=== PATIENT | female | born 1940 | race Caucasian/White ===

== ENCOUNTER → 2018-01-04 15:30 | Outpatient (CLI) | payer MEDICARE, OTHER, SELFPAY ==
--- NOTE | 2018-01-04 15:32 | CT_ITS ---
STUDY: CTA CHEST REASON FOR EXAM: Female, 77 years old. Evaluation of pulmonary embolus. 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 Post-processing of the angiographic images was performed, with multiplanar reformation and 3D reconstruction. Individualized dose optimization techniques were used for this CT. COMPARISON: Prior chest CT exam of September 10, 2017 FINDINGS: Normal enhancement of the main pulmonary artery and right and left pulmonary arteries. Normal enhancement of the bilateral peripheral pulmonary arteries. There is no demonstrated pulmonary embolism. There is atherosclerotic calcification of the aortic arch with tortuosity. There is no demonstrated aortic dissection. Mild cardiomegaly. Calcified mediastinal lymph nodes. Calcified left hilar lymph nodes. Minimal linear type change in the anterior right upper lobe multifocal thin linear areas of atelectasis or scarring in the right lower lobe. Stable linear scarring at the left lung base. Negative for a new major areas of consolidation. Calcified granulomata of the left lower lobe. Stable 6 mm pleural-based nodule of the lingula, image 74 series 2. Negative for pleural effusion. Normal chest wall structures. There are degenerative changes of thoracic spine with demineralized osseous structures and increased kyphosis. Calcified granulomata of the spleen. Stable cyst of the left kidney. CT/CTA Chest W/WO Contrast IMPRESSION: Negative for pulmonary embolus. Resolution of prior embolus. Atherosclerotic changes of the thoracic aorta without aneurysm. Mild cardiomegaly unchanged. New focal linear opacities of the anterior right upper lobe and right lower lobe. Other bilateral linear opacities are stable and chronic in nature. Stigmata of old granulomatous disease with calcified mediastinal and left hilar lymph nodes. Calcified granulomata of the left lower lobe and spleen.. Stable 6 mm pleural-based noncalcified nodule of the lingula. Electronically Signed: Scarlet Eduardo MD at 16:36 EDT , Service support ,
== END ==
PROVIDERS: Family Provider Internal Medicine; PCP Internal Medicine; Visit Provider Internal Medicine
DX: I26.99 Other pulmonary embolism without acute cor pulmonale (principal)
CPT/HCPCS: 71275; Q9967

== ENCOUNTER → 2018-01-05 09:38 | Outpatient (CLI) | payer MEDICARE, OTHER, SELFPAY ==
--- NOTE | 2018-01-05 09:41 | VDLE_ITS ---
Reason For Study: PE RIGHT LEFT GSV is normal. GSV is normal. CFV is compressible, spontaneous, phasic, CFV is compressible, spontaneous, phasic, competent and demonstrates normal competent, and demonstrates normal augmentation. augmentation. FV is compressible, spontaneous, phasic, FV is compressible, spontaneous, phasic, competent and demonstrates normal competent and demonstrates normal augmentation. augmentation. POP V is compressible, spontaneous, phasic, POP V is compressible, spontaneous, phasic, competent and demonstrates normal competent and demonstrates normal augmentation. augmentation. T/P Trunk is compressible. T/P Trunk is compressible. PTV is compressible. PTV is compressible. RT PerV is compressible. LT PerV is compressible. Procedure Exam performed in department. A preliminary report was called and/or faxed to Dr. Baker. Interpretation Summary Deep veins of the lower extremities are bilaterally patent and compressible segmentally. There is no evidence of deep vein thrombosis on either side. Valvular competence appears intact within the proximal deep venous systems bilaterally. The greater saphenous veins appear bilaterally patent and compressible segmentally. Ordering Physician: Trell Baker Referring Physician: Nhi Kirby M.D. Performed By: Gisella Crockett RVT
--- NOTE | 2018-01-05 09:41 | ECHOD_ITS ---
Reason For Study: Pulmonary embolism Procedure This was a 2D Doppler, Color Flow transthoracic echocardiogram. Exam performed in department. Left Ventricle Normal LV size. Left ventricular systolic function is normal. The estimated ejection fraction is 53 %. Transmitral diastolic flow velocities suggest mild (stage 1) diastolic dysfunction (reversed pattern). No regional wall motion abnormalities noted. Right Ventricle Normal RV size. Normal systolic function. Atria Normal left atrium. Normal right atrium. Hypermobile atrial septum. Mitral Valve Normal mitral valve. Mild (1+) eccentric mitral valve insufficiency. Tricuspid Valve Normal tricuspid valve. Mild (1+) tricuspid valve insufficiency. Pulmonary artery systolic pressure is 32 mmHg. Aortic Valve Normal aortic valve. Trisinus/trileaflet aortic valve. Pulmonic Valve Normal pulmonic valve. Great Vessels Normal aortic root. The pulmonary artery is normal size. Normal inferior vena cava. Pericardium/Pleural No pericardial effusion. MMode/2D Measurements & Calculations LVIDd: 4.3 cm IVSd: 0.91 cm Ao root diam: 2.6 cm LVIDs: 2.9 cm LVPWd: 0.87 cm LA dimension: 3.5 cm RVDd: 3.0 cm FS: 33.0 % LAV(MOD-bp): 46.4 ml LA A4 area: 17.2 cm2 RA A4 area: 15.2 cm2 LAV(MOD-bp) Indexed: 26.5 ml/m2 LAV(MOD-sp2): 43.9 ml LAV(MOD-sp4): 50.8 ml Doppler Measurements & Calculations MV E max juice: 57.4 cm/sec Lat Peak E' Juice: 5.9 cm/sec Med Peak E' Juice: 4.6 cm/sec MV A max juice: 98.6 cm/sec E/E' lat: 9.7 E/E' med: 12.5 MV E/A: 0.58 Ao V2 max: 148.7 cm/sec LV V1 max: 103.7 cm/sec PA V2 max: 130.1 cm/sec Ao max P.8 mmHg LV V1 max P.3 mmHg TR max juice: 256.4 cm/sec TR max P.4 mmHg Interpretation Summary Hypermobile atrial septum. Normal LV size. Left ventricular systolic function is normal. The estimated ejection fraction is 53 %. Transmitral diastolic flow velocities suggest mild (stage 1) diastolic dysfunction (reversed pattern). Mild (1+) tricuspid valve insufficiency. Ordering Physician: Trell Baker Referring Physician: Nhi Kirby M.D. Performed By: Irina Kennedy RDCS
== END ==
PROVIDERS: Family Provider Internal Medicine; PCP Internal Medicine; Visit Provider Internal Medicine Cardiovascular Disease
DX: I26.99 Other pulmonary embolism without acute cor pulmonale (principal); I48.91 Unspecified atrial fibrillation; I47.2 Ventricular tachycardia
CPT/HCPCS: 93306; 93970

== ENCOUNTER 2022-01-19 06:06 | Emergency (ER) | payer MEDICARE, OTHER, SELFPAY ==
[2022-01-19 06:06] VITALS: BP 156/98; PULSE 72; RESP 15; TEMP 37.2; O2SAT 95; BMI 29.7
--- NOTE | 2022-01-19 06:10 | CT_ITS ---
STUDY: CT ABDOMEN AND PELVIS WITHOUT CONTRAST REASON FOR EXAM: Female, 81 years old. Kidney Stone RADIATION DOSAGE (If Supplied By Facility): CTDIvol = ( 11.68 ) mGy, DLP = ( 516.35 ) mGycm TECHNIQUE: Transaxial images were obtained from the dome of the diaphragm to the symphysis pubis without oral contrast, and without intravenous contrast. Sagittal and coronal images were reconstructed. Individualized dose optimization techniques were used for this CT. COMPARISON: CTA chest of 01/04/2018. FINDINGS: Bibasilar dependent atelectasis. Findings of remote granulomatous infection. Trace of pericardial fluid. Mild coronary artery calcification. Small hiatal hernia, measuring 3.3 cm in diameter. Liver is unremarkable on this nonenhanced scan. Normal gallbladder and extrahepatic biliary system. Unremarkable spleen. Markedly atrophic pancreas. No findings of acute pancreatitis. Normal bilateral adrenal glands. Right kidney is mildly enlarged and edematous with asymmetric perirenal stranding and a trace of perirenal fluid.. Very mild right hydronephrosis and hydroureter are present, secondary to a 4 mm ovoid stone which lies within the distal ureter at the UVJ. No other renal or ureteral stones are identified. 5 cm simple cyst noted upper pole of the left kidney. 3 cm simple cyst noted posteriorly at the midpole of the right kidney. These simple cysts require no follow-up. No left-sided hydronephrosis. Urinary bladder is unremarkable. No gastric mural thickening, periduodenal inflammatory changes or distended small bowel loops. Numerous colonic diverticula are present, without evidence for acute diverticulitis. No findings of small bowel obstruction or colitis. Appendix is not visualized. No pericecal inflammatory changes. Uterus is not well seen. 18 mm rounded unilocular cystic structure in the left adnexal region, consistent with a small left ovarian cyst. No right adnexal abnormality. Multilevel thoracolumbar degenerative disc disease. No acute fracture. CT/Abdomen/Pelvis without Cont IMPRESSION: Very mild right hydronephrosis due to a 4 mm stone within the distal ureter at the UVJ. Electronically Signed: Arnold Alfonso MD at 7:51 EDT ,
[2022-01-19] MEDS: Ondansetron 4 MG/2 ML Vial IV (06:21)
[2022-01-19] MEDS: 0.9% Normal Saline 1,000 ML 250 ML IV (06:24)
[2022-01-19] MEDS: Morphine 4 MG/ML Syringe IV ×2 (06:24→06:49)
--- NOTE | 2022-01-19 06:26 | ED.VIS.GI ---
HPI <Dr. Phu Pandey MD - Last Filed: 01/19/22 06:52> HPI - GI History of Present Illness Chief Complaint: Abd Pain Detail of Chief Complaint: Abrupt onset of mid right abdominal pain with frequency Informant: patient and spouse/S.O. Abdominal Pain/Flank Pain Onset: Yesterday and Hours Context: Sudden Onset Timing: Continuous and Waxes and wanes Quality: Aching Location: RLQ and Right Flank Current Severity: Moderate Maximum Severity: Severe Worsened by: Nothing Relieved by: Nothing Nausea/Vomiting/Emesis GI Symptom: Positive for Nausea; Negative for Vomiting Diarrhea/Melena/Hematochezia GI Symptom: Negative for Diarrhea, Melena and Hematochezia Associated Symptoms Associated Symptoms: Positive for Frequency and Urgency; Negative for Dysuria and Hematuria Narrative Narrative: Patient is a 81-year-old woman who presents with acute onset of right-sided abdominal/flank pain. She cannot find a position of comfort. She does report frequency and urgency. She denies dysuria or hematuria. She does report nausea without vomiting or diarrhea. She denies fever, chills night sweats. She has no prior history of renal ureterolithiasis. She is status post appendectomy. She denies any other complaints. Prior similar symptoms: No Recent Illness/Hospitalization: No PFSH <Dr. Phu Pandey MD - Last Filed: 01/19/22 06:52> PFS Medical History (Updated 01/19/22 @ 08:[address] Fred Lui MD) Atrial fibrillation with RVR History of DVT (deep vein thrombosis) Nonsustained ventricular tachycardia Pulmonary embolism, bilateral Home Medications aspirin 81 mg chewable tablet 81 mg PO DAILY@0800 #90 tab.chew 10/01/18 [Rx Last Taken Unknown] hydrocodone-acetaminophen 1 tab PO Q4H PRN 3 Days #14 tab 01/19/22 [Rx Last Taken Unknown] potassium chloride 20 meq PO DAILY #10 tab 01/19/22 [Rx Last Taken Unknown] Allergy/AdvReac Type Severity Reaction Status Date / Time acetaminophen [From Tylenol] Allergy Intermediate BP Verified 01/19/22 06:11 ELEVATION apixaban [From Eliquis] AdvReac visual Verified 01/19/22 06:11 disturbance rivaroxaban [From Xarelto] AdvReac burning Verified 01/19/22 06:11 sensation, hair loss Family History Mother Hypertension Surgical History History of appendectomy History of bilateral knee replacement History of hysterectomy (~1979) Social History adopted: No household members: spouse housing: house number of children: 0 pets and animals: Yes (1) pets and animals: dog(s) history of recent travel: No Smoking Status: Never smoker alcohol intake: never substance use type: does not use caffeine: Yes Type: coffee Number of servings: 2 what type of physical activity do you participate in: walking and other frequency: daily duration: 15-30 minutes/day seatbelt use: always do you feel safe at home: Yes ROS <Dr. Phu Pandey MD - Last Filed: 01/19/22 06:52> ROS ED Constitutional Constitutional ED: Reports chills; Denies fever(s), subjective, sweats or weight loss ENT ENT ED: Denies ear pain, rhinorrhea or sore throat Cardiovascular Cardiovascular: Denies chest pain or palpitations Respiratory/Chest Respiratory/Chest: Denies cough, dyspnea or dyspnea on exertion Gastrointestinal Gastrointestinal: Reports abdominal pain and nausea; Denies constipation, diarrhea, melena or vomiting Genitourinary Genitourinary ED: Reports urinary frequency; Denies dysuria or hematuria Musculoskeletal Musculoskeletal: Reports back pain; Denies arthralgias, myalgias or neck pain Integumentary Denies Abrasions or rash Neurologic Neurologic: Denies paresthesias or weakness Hematologic/Lymphatic Hematologic/Lymphatic: Denies easy bleeding or easy bruising EXAM <Dr. Phu Pandey MD - Last Filed: 01/19/22 06:52> Physical Exam Const Vital Signs: 01/19/22 06:06 Temperature 98.9 F Temperature Source Temporal Pulse Rate 72 Respiratory Rate 15 Blood Pressure 156/98 H Blood Pressure Mean 117 Pulse Ox 95 Oxygen Delivery Method Room Air Positive well nourished and well developed; Negative for obese, cachectic, contractures or unkempt General Appearance ED: well developed and other Patient appears chilled. She also appears uncomfortable. ; Negative for unkempt, cachectic, contractures, NAD or pallor Nutritional Appearance: Negative for cachectic or obese HEENT Reports moist mucous membranes normocephalic and atraumatic Eyes PERRL and EOMs intact bilaterally General Eye ED: Negative for pale conjunctiva or scleral icterus Neck no lymphadenopathy, supple and no JVD Resp normal respiratory effort and clear to auscultation bilaterally Cardio regular rate, regular rhythm, S1 normal heart sound, S2 normal heart sound and no murmurs GI non-distended and no masses; Negative for non-tender Inspection: Negative for abdominal distention Auscultation: normoactive bowel sounds and hypoactive bowel sounds Palpation: soft and tender RLQ (Over the right kidney); Negative for guarding, rigid, hepatomegaly, splenomegaly, mass, pulsatile mass or rebound tenderness present Back/Spine no CVA tenderness General Back: Negative for CVA tenderness Cervical Spine: Negative for cervical spine tenderness Thoracic Spine / Upper Back: Negative for thoracic spinal tenderness Lumbar Spine / Lower Back: Negative for lumbar spinal tenderness Extremity Negative for full ROM General Extremety ED: Negative for edema or tenderness General Extremity: Negative for edema Neuro CN's II-XII intact bilaterally and moves all extremities Sensorium / Orientation: alert, oriented to person, oriented to place and oriented to time Psych mental status grossly normal Appearance: Negative for unkempt Skin no wounds Skin Narrative: Patient has dry skin. General Skin Exam: Negative for jaundice or pallor Lesions: no lesions <Dr. Fred Lui MD - Last Filed: 01/19/22 08:15> Physical Exam Const Vital Signs: 01/19/22 06:06 Temperature 98.9 F Temperature Source Temporal Pulse Rate 72 Respiratory Rate 15 Blood Pressure 156/98 H Blood Pressure Mean 117 Pulse Ox 95 Oxygen Delivery Method Room Air [facility] <Dr. Phu Pandey MD - Last Filed: 01/19/22 06:52> [facility] Narrative Medical decision making narrative: Abrupt onset of right sided abdominal/flank pain with urinary symptoms suspect urinary tract infection versus obstructing ureterolithiasis. Patient was medicated with Zofran and morphine for the nausea and pain respectively. CBC to assess white count and H&H. BMP to assess renal function. UA to rule out infection. CT of the abdomen and pelvis without contrast to assess for obstructing stone. I was informed at approximately 0648 that patient was still in severe pain writhing in bed. An additional 4 mg of morphine was ordered. Lab Data Labs: Laboratory Results - last 24 hr 01/19/22 01/19/22 01/19/22 07:05 07:05 07:35 WBC 8.2 RBC 4.65 Hgb 14.0 Hct 42.6 MCV 91.6 MCH 30.1 MCHC 32.9 RDW Std Deviation 45.6 H RDW Coeff of Carloz 13.5 Plt Count 196 MPV 9.9 Immature Gran % (Auto) 0.400 Neut % (Auto) 88.8 H Lymph % (Auto) 7.2 L [place] % (Auto) 3.2 Eos % (Auto) 0.0 Baso % (Auto) 0.4 Absolute Neuts (auto) 7.3 Absolute Lymphs (auto) 0.59 L Nucleated RBC % 0 Differential Comment COMMENT Sodium 143 Potassium 2.9 L Chloride 107 Carbon Dioxide 24.0 Anion Gap 12 BUN 21 H Creatinine 0.85 Estim Creat Clear Calc 45.92 Est GFR (MDRD) Af Amer 82 Est GFR (MDRD) Non-Af 68 BUN/Creatinine Ratio 24.8 H Glucose 167 H Calcium 9.3 Urine Color Straw Urine Clarity Clear Urine pH 7.0 Ur Specific [place] 1.010 Urine Protein Negative Urine Glucose (UA) 100 H Urine Ketones 15 H Urine Occult Blood 150 H Urine Nitrite Negative Urine Bilirubin Negative Urine Urobilinogen Normal Ur Leukocyte Esterase Negative Urine RBC 10-25 SEEN Urine WBC 0 SEEN Ur Squamous Epith Cells 0-5 SEEN Urine Bacteria 0 SEEN Urine Mucus 0 SEEN Radiography Diagnostic Testing: Clinical Impression(s) from Imaging Studies Abdomen/Pelvis CT 01/19/22 06:10 IMPRESSION: Very mild right hydronephrosis due to a 4 mm stone within the distal ureter at the UVJ. Electronically Signed: Arnold Alfonso MD at 7:51 EDT , <Dr. Fred Lui MD - Last Filed: 01/19/22 08:15> [facility] Narrative Medical decision making narrative: I assumed the patient's care from the overnight physician Dr. Pandey. CAT scan shows a distal right 4 mm stone. Labs are unremarkable other than a potassium of 2.9. The patient's stenciling machine tender is in the room. He knows them and her friends. She has had runs of V. tach in the past. He would like me to address her potassium prior to discharge. Patient is currently resting more comfortably after his second dose of morphine. Lab Data Attestation: I reviewed the patient's lab results. Lab results narrative: CBC normal. White count 8. H&H 14 and 42. Electrolytes show potassium of 2.9. Gap of 12. BUN 21 creatinine 0.8. Glucose 167. Urinalysis shows red cells both in the macro and microscopic. No nitrites no white cells and no bacteria. CAT scan shows a 4 mm right distal ureteral stone just above the bladder. I did go all the test results with the patient and her and one of her physicians in the room. Labs: Laboratory Results - last 24 hr 01/19/22 01/19/22 01/19/22 07:05 07:05 07:35 WBC 8.2 RBC 4.65 Hgb 14.0 Hct 42.6 MCV 91.6 MCH 30.1 MCHC 32.9 RDW Std Deviation 45.6 H RDW Coeff of Carloz 13.5 Plt Count 196 MPV 9.9 Immature Gran % (Auto) 0.400 Neut % (Auto) 88.8 H Lymph % (Auto) 7.2 L [place] % (Auto) 3.2 Eos % (Auto) 0.0 Baso % (Auto) 0.4 Absolute Neuts (auto) 7.3 Absolute Lymphs (auto) 0.59 L Nucleated RBC % 0 Differential Comment COMMENT Sodium 143 Potassium 2.9 L Chloride 107 Carbon Dioxide 24.0 Anion Gap 12 BUN 21 H Creatinine 0.85 Estim Creat Clear Calc 45.92 Est GFR (MDRD) Af Amer 82 Est GFR (MDRD) Non-Af 68 BUN/Creatinine Ratio 24.8 H Glucose 167 H Calcium 9.3 Urine Color Straw Urine Clarity Clear Urine pH 7.0 Ur Specific [place] 1.010 Urine Protein Negative Urine Glucose (UA) 100 H Urine Ketones 15 H Urine Occult Blood 150 H Urine Nitrite Negative Urine Bilirubin Negative Urine Urobilinogen Normal Ur Leukocyte Esterase Negative Urine RBC 10-25 SEEN Urine WBC 0 SEEN Ur Squamous Epith Cells 0-5 SEEN Urine Bacteria 0 SEEN Urine Mucus 0 SEEN Radiography Diagnostic Testing: Clinical Impression(s) from Imaging Studies Abdomen/Pelvis CT 01/19/22 06:10 IMPRESSION: Very mild right hydronephrosis due to a 4 mm stone within the distal ureter at the UVJ. Electronically Signed: Arnold Alfonso MD at 7:51 EDT , Discharge Plan Triage Chief Complaint: Abd Pain ED Provider: Phu Pandey Dx/Rx/DC Orders Clinical Impression: Kidney stone on right side, Acute hypokalemia, Nonsustained ventricular tachycardia Instructions: ED Kidney Stone w/ Colic Prescriptions: New hydrocodone-acetaminophen 5-325 mg tablet 1 tab PO Q4H PRN (Reason: pain) 3 Days Qty: 14 RF: 0 potassium chloride 20 mEq tablet,ER particles/crystals 20 meq PO DAILY Qty: 10 RF: 0 No Action aspirin 81 mg tablet,chewable 81 mg PO DAILY@0800 Qty: 90 RF: 3 Primary Care Provider: Nhi Kirby Referrals: Nhi Kirby, [Primary Care Provider] - 3-5 Days if not improving Activity Restrictions/Additional Instructions: You have a 4 mm kidney stone on the right that should pass. [place] for pain. Make sure you are drinking plenty of fluids and take in plenty of fiber to prevent constipation. Your potassium is also low at 2.9. To be placed on potassium pills for the next 10 days. You can follow-up with your primary care physician to have your potassium level rechecked in the next several weeks. Return if intractable pain, fever or intractable vomiting or you are feeling worse. Disposition Disposition: Home, Self Care
[2022-01-19 07:12] LABS: Absolute Lymphocyte Count 0.59 X10^3/uL (0.83-4.51); Absolute Neutrophil Count 7.3 X10^3/uL (2.0-7.7); Basophil# 0.03 X10^3/uL; Basophil% 0.4 % (0-1); Hematocrit 42.6 % (37-47); Lymphocyte # 0.59 X10^3/ul (0.83-4.51); Lymphocyte % 7.2 % (19-41); Mean Corp Hgb Conc 32.9 g/dL (32-36); Mean Corpuscular Hgb 30.1 pg (27.0-32.0); Mean Corpuscular Volume 91.6 fL (81-99); Mean Platelet Vol. 9.9 fl (6.2-12.0); Monocyte# 0.26 X10^3/uL; Monocyte% 3.2 % (0-10); NRBC Flagged by Analyzer 0 % (0-5); Neutrophil # 7.25 X10^3/uL (2.7-7.7); Neutrophil % 88.8 % (47-70); POSITIVE DIFFERENTIAL YES; Platelet Count 196 K/mm3 (150-450); RBC Distribution Width CV 13.5 % (11.6-14.6); RBC Distribution Width SD 45.6 fl (35.1-43.9); Red Blood Count 4.65 M/mm3 (4.2-5.4); White Blood Count 8.2 K/mm3 (4.4-11.0)
[2022-01-19 07:15] LABS: Differential Indicated SCAN CRITERIA MET
[2022-01-19 07:24] LABS: Anion Gap 12 (5-15); BUN 21 mg/dL (7-18); BUN/Creat Ratio 24.8 RATIO (10-20); Calcium,Total 9.3 mg/dL (8.5-10.1); Chloride 107 mmol/L (98-107); Creatinine, Serum 0.85 mg/dL (0.55-1.02); EST Glomerular Filtration Rate 68 mL/min (>60); Est Glom Filt Rate - Afr Amer 82 mL/min (>60); Estimated Creatinine Clearance 45.92 ml/min; Glucose 167 mg/dL (74-106); Potassium 2.9 mmol/L (3.5-5.1); Sodium Level 143 mmol/L (136-145)
[2022-01-19 07:43] LABS: Bacteria 0 SEEN /hpf (None Seen); Mucous, Urine 0 SEEN /hpf (<or=2+); White Blood Cells 0 SEEN /hpf (0-5)
[2022-01-19 07:44] LABS: Color, Urine Straw (Yellow); Glucose, Dipstick 100 mg/dl (Normal); Ketone-Dipstick 15 mg/dl (Negative); Leukocyte Esterase-Dipstick Negative /ul (Negative); Nitrite-Dipstick Negative (Negative); Occult Blood-Urine 150 /ul (Negative); Protein-Dipstick Negative (Negative); Urine Bilirubin Dipstick Negative (Negative); Urine Clarity Clear (Clear); Urine Urobilinogen Normal (Normal)
[2022-01-19 07:51] LABS: Red Blood Cells-Urine 10-25 SEEN /hpf (0-5); Squamous Epithelial Cells - UA 0-5 SEEN /hpf (5-10)
[2022-01-19] MEDS: morphine 8 MG/ML Syringe 6 MG IV (07:51)
[2022-01-19] MEDS: Potassium Chloride Oral Tablet 20 MEQ 40 MEQ PO (08:21)
[2022-01-19 08:41] VITALS: BP 172/80; PULSE 69; RESP 16; O2SAT 98
== END 2022-01-19 08:42 | disposition home or self-care (01) ==
PROVIDERS: Emergency Provider Emergency Medicine; PCP Internal Medicine; Visit Provider Emergency Medicine
DX: N20.0 Calculus of kidney (principal); I47.2 Ventricular tachycardia; E87.6 Hypokalemia; Z86.718 Personal history of other venous thrombosis and embolism
CPT/HCPCS: 74176; 80048; 81001; 85025; 96374; 96375; 96376; 99283; J7030; A4216; J2405

== ENCOUNTER 2022-01-20 15:13 | Observation (INO) | payer MEDICARE, OTHER, SELFPAY ==
[2022-01-20 15:14] VITALS: BP 196/84; PULSE 95; RESP 18; TEMP 36.2; O2SAT 100; BMI 25.0
[2022-01-20] MEDS: 0.9% Normal Saline 1,000 ML 1000 ML IV (15:33)
[2022-01-20 15:34] LABS: Absolute Lymphocyte Count 0.67 X10^3/uL (0.83-4.51); Absolute Neutrophil Count 10.9 X10^3/uL (2.0-7.7); Basophil# 0.03 X10^3/uL; Basophil% 0.2 % (0-1); Hematocrit 47.3 % (37-47); Hemoglobin 15.3 g/dL (12.0-15.0); Lymphocyte # 0.67 X10^3/ul (0.83-4.51); Lymphocyte % 5.5 % (19-41); Mean Corp Hgb Conc 32.3 g/dL (32-36); Mean Corpuscular Hgb 29.9 pg (27.0-32.0); Mean Corpuscular Volume 92.6 fL (81-99); Mean Platelet Vol. 9.8 fl (6.2-12.0); Monocyte# 0.62 X10^3/uL; Monocyte% 5.1 % (0-10); NRBC Flagged by Analyzer 0 % (0-5); Neutrophil # 10.88 X10^3/uL (2.7-7.7); Neutrophil % 88.9 % (47-70); Platelet Count 206 K/mm3 (150-450); RBC Distribution Width CV 13.6 % (11.6-14.6); RBC Distribution Width SD 46.4 fl (35.1-43.9); Red Blood Count 5.11 M/mm3 (4.2-5.4); White Blood Count 12.2 K/mm3 (4.4-11.0)
[2022-01-20] MEDS: Ondansetron 4 MG/2 ML Vial IV ×2 (15:34→18:11)
[2022-01-20 16:23] LABS: Bacteria 0 SEEN /hpf (None Seen); Mucous, Urine 0 SEEN /hpf (<or=2+); Red Blood Cells-Urine 0 SEEN /hpf (0-5)
[2022-01-20] MEDS: Morphine 4 MG/ML Syringe IV ×2 (16:30→17:17)
[2022-01-20 16:32] LABS: Color, Urine Yellow (Yellow); Glucose, Dipstick Normal (Normal); Ketone-Dipstick Negative (Negative); Leukocyte Esterase-Dipstick 500 /ul (Negative); Nitrite-Dipstick Negative (Negative); Occult Blood-Urine 150 /ul (Negative); Protein-Dipstick 30 mg/dl (Negative); Specific Gravity, Urine 1.025 (1.002-1.030); Urine Bilirubin Dipstick Negative (Negative); Urine Clarity Sl. Cloudy (Clear); Urine Urobilinogen Normal (Normal)
[2022-01-20 16:36] LABS: Anion Gap 4 (5-15); BUN 24 mg/dL (7-18); BUN/Creat Ratio 20.2 RATIO (10-20); Calcium,Total 9.9 mg/dL (8.5-10.1); Chloride 105 mmol/L (98-107); Creatinine, Serum 1.19 mg/dL (0.55-1.02); EST Glomerular Filtration Rate 46 mL/min (>60); Est Glom Filt Rate - Afr Amer 56 mL/min (>60); Glucose 156 mg/dL (74-106); Potassium 4.3 mmol/L (3.5-5.1); Sodium Level 136 mmol/L (136-145)
[2022-01-20 17:02] LABS: Calcium Oxalate Crystals Ur 2+ /hpf (<or=2+); Squamous Epithelial Cells - UA 0-5 SEEN /hpf (5-10); White Blood Cells 5-10 SEEN /hpf (0-5)
--- NOTE | 2022-01-20 17:10 | EX.ED.DYSGE1 ---
HPI <KIRSTY Alicea - Last Filed: 01/20/22 17:28> History of Present Illness Chief Complaint: Nausea/Vomiting Narrative Narrative: 81-year-old female with history of kidney stones, DVT, A. fib, pulmonary embolism presents to the emergency department with continued pain, nausea and vomiting secondary to a 4 mm kidney stone on the right side. Patient was seen here yesterday, diagnosed with a 4 mm kidney stone on the right side, slight hydronephrosis. Patient has continued nausea vomiting and uncontrolled pain at home, patient talk to the urologist who referred her to the emergency department. Denies any fevers or chills. PFS <KIRSTY Alicea - Last Filed: 01/20/22 17:28> [facility] Medical History (Updated 01/21/22 @ 10:[address] Joellen Tucker, DO) Atrial fibrillation with RVR History of DVT (deep vein thrombosis) Nonsustained ventricular tachycardia Pulmonary embolism, bilateral Home Medications hydrocodone-acetaminophen 1 tab PO Q4H PRN 3 Days #14 tab 01/19/22 [Rx Last Taken 01/20/22] aspirin 81 mg PO DAILY@0800 01/20/22 [History Last Taken 01/19/22] potassium chloride 20 meq PO DAILY 01/20/22 [History Last Taken 01/19/22] Allergy/AdvReac Type Severity Reaction Status Date / Time acetaminophen [From Tylenol] Allergy Intermediate BP Verified 01/20/22 15:15 ELEVATION apixaban [From Eliquis] AdvReac visual Verified 01/20/22 15:15 disturbance rivaroxaban [From Xarelto] AdvReac burning Verified 01/20/22 15:15 sensation, hair loss Family History Mother Hypertension Surgical History History of appendectomy History of bilateral knee replacement History of hysterectomy (~1979) Social History adopted: No household members: spouse housing: house number of children: 0 pets and animals: Yes (1) pets and animals: dog(s) history of recent travel: No Smoking Status: Never smoker alcohol intake: never substance use type: does not use caffeine: Yes Type: coffee Number of servings: 2 what type of physical activity do you participate in: walking and other frequency: daily duration: 15-30 minutes/day seatbelt use: always do you feel safe at home: Yes ROS <KIRSTY Alicea - Last Filed: 01/20/22 17:28> ROS ED ROS Narrative Constitutional: Negative for fever, chills, weight loss, weakness Eyes: Negative for vision loss, vision change, double vision ENT: Negative for any sore throat, ear pain, congestion Cardiovascular: Negative for any chest pain, tightness, palpitations, racing heartbeat Respiratory: Negative for any cough, sputum production, hemoptysis, shortness of breath, shortness of breath on exertion, orthopnea Gastrointestinal: Negative for any diarrhea, constipation, blood in stool, blood in vomit. Positive for right sided abdomen, right flank pain, nausea and vomiting : Negative for any urinary frequency, incontinence, dysuria, retention, blood in urine Muscle skeletal: Negative for any muscle joint pain, stiffness, myalgias, arthralgias, neck pain, back pain Neurological: Negative for any headache, dizziness, syncope, numbness or tingling Skin: Negative for any rashes, lumps, itching, abrasions, lacerations Psychiatric: Negative for any depression, anxiety, stress, suicidal ideation, homicidal ideation Hematologic: Negative for any easy bruising, excessive bruising, easy bleeding Allergies: Negative for any eczema, hives, rash EXAM <KIRSTY Alicea - Last Filed: 01/20/22 17:28> Physical Exam Narrative Exam Narrative: Vital signs reviewed. Patient is appear to be in mild distress secondary nausea vomiting right lower quadrant pain HEET: Head normocephalic atraumatic, TMs clear bilaterally. Posterior pharynx is clear, moist mucous membranes. Nares clear bilaterally. Neck: Supple with no lymphadenopathy or tenderness. No signs of meningismus, negative jolt sign. Cardiac: Regular rate and rhythm no murmurs gallops or rubs, equal peripheral pulses bilaterally. Respiratory: Lungs clear to auscultation bilaterally. No chest tenderness. Abdomen: Soft, nondistended. No abdominal bruit or pulsatile masses. No hepatosplenomegaly. Patient feels tender/sore to the right flank Extremities: No peripheral edema, no signs of gross trauma or deformity. Active full range of motion of all extremities. Neuro: Cranial nerves II through XII intact, no focal neurological deficits. Skin: Clean dry and intact with no rash, purpura, petechiae, vesicles or pustules. Backslash flank: No CVA tenderness, no midline spinal tenderness, no deformity. Psych: Normal mood and affect. No SI, HI or acute psychosis. Const Vital Signs: 01/20/22 15:14 01/20/22 17:31 Temperature 97.2 F L 98.2 F Temperature Source Temporal Oral Pulse Rate 95 90 Respiratory Rate 18 14 Blood Pressure 196/84 H 173/70 H Blood Pressure Mean 121 104 Pulse Ox 100 100 Oxygen Delivery Method Room Air Room Air Positive well nourished and well developed General Appearance ED: well developed <Dr. Joellen Tucker DO - Last Filed: 01/21/22 10:33> Physical Exam Const Vital Signs: 01/20/22 15:14 01/20/22 17:31 Temperature 97.2 F L 98.2 F Temperature Source Temporal Oral Pulse Rate 95 90 Respiratory Rate 18 14 Blood Pressure 196/84 H 173/70 H Blood Pressure Mean 121 104 Pulse Ox 100 100 Oxygen Delivery Method Room Air Room Air MDM <KIRSTY Alicea - Last Filed: 01/20/22 17:28> [facility] MDM Narrative Medical decision making narrative: Patient appears to be mild distress secondary to right flank pain, nausea and vomiting. Patient was seen here yesterday and was diagnosed with a 4 mm kidney stone, patient is back today to be admitted referred by urology. Patient did receive basic laboratory values, patient CBC shows a slight leukocytosis white blood count of 12.2. Patient's urinalysis shows blood, leukocyte Estrace at 500, a culture will be sent. Patient's renal function do show increased numbers from yesterday, with a creatinine of 1.19 as well as a BUN of 24, GFR 46. Patient received 1 L of normal saline, nausea medicine, morphine 4 mg x 2. I did speak with Dr. Thompson, at this time he does not want any more imaging. He will take her tomorrow to have surgery for the renal calculus. At this time, patient is stable for admission under his service. Lab Data Attestation: I reviewed the patient's lab results. Labs: Laboratory Results - last 24 hr 01/20/22 01/20/22 01/20/22 15:28 15:28 16:12 WBC 12.2 H RBC 5.11 Hgb 15.3 H Hct 47.3 H MCV 92.6 MCH 29.9 MCHC 32.3 RDW Std Deviation 46.4 H RDW Coeff of Carloz 13.6 Plt Count 206 MPV 9.8 Immature Gran % (Auto) 0.300 Neut % (Auto) 88.9 H Lymph % (Auto) 5.[address] [place] % (Auto) 5.1 Eos % (Auto) 0.0 Baso % (Auto) 0.2 Absolute Neuts (auto) 10.9 H Absolute Lymphs (auto) 0.67 L Nucleated RBC % 0 Sodium Cancelled Potassium Cancelled Chloride Cancelled Carbon Dioxide Cancelled Anion Gap Cancelled BUN Cancelled Creatinine Cancelled Estim Creat Clear Calc Cancelled Est GFR (MDRD) Af Amer Cancelled Est GFR (MDRD) Non-Af Cancelled BUN/Creatinine Ratio Cancelled Glucose Cancelled Calcium Cancelled Urine Color Yellow Urine Clarity Sl. Cloudy Urine pH 6.0 Ur Specific [place] 1.025 Urine Protein 30 H Urine Glucose (UA) Normal Urine Ketones Negative Urine Occult Blood 150 H Urine Nitrite Negative Urine Bilirubin Negative Urine Urobilinogen Normal Ur Leukocyte Esterase 500 H Urine RBC 0 SEEN Urine WBC 5-10 SEEN Ur Squamous Epith Cells 0-5 SEEN Calcium Oxalate Crystal 2+ Urine Bacteria 0 SEEN Urine Mucus 0 SEEN 01/20/22 16:12 WBC RBC Hgb Hct MCV MCH MCHC RDW Std Deviation RDW Coeff of Carloz Plt Count MPV Immature Gran % (Auto) Neut % (Auto) Lymph % (Auto) [place] % (Auto) Eos % (Auto) Baso % (Auto) Absolute Neuts (auto) Absolute Lymphs (auto) Nucleated RBC % Sodium 136 Potassium 4.3 Chloride 105 Carbon Dioxide 27.0 Anion Gap 4 L BUN 24 H Creatinine 1.19 H Estim Creat Clear Calc 32.80 Est GFR (MDRD) Af Amer 56 L Est GFR (MDRD) Non-Af 46 L BUN/Creatinine Ratio 20.2 H Glucose 156 H Calcium 9.9 Urine Color Urine Clarity Urine pH Ur Specific [place] Urine Protein Urine Glucose (UA) Urine Ketones Urine Occult Blood Urine Nitrite Urine Bilirubin Urine Urobilinogen Ur Leukocyte Esterase Urine RBC Urine WBC Ur Squamous Epith Cells Calcium Oxalate Crystal Urine Bacteria Urine Mucus <Dr. Joellen Tucker, DO - Last Filed: 01/21/22 10:33> [facility] Narrative Medical decision making narrative: I have personally performed a face to face assessment of the patient and have reviewed the JC Note. I performed a substantive portion of the visit including all aspects of the following. My yan findings include: History is patient is a 1-year-old female previously diagnosed with 4 mm obstructing right kidney stone. She has not been tolerating oral treatment at home and was instructed to come to the emergency room for admission by her urologist, Dr. Adrian. Initially patient complained more of nausea the pain however she does start to complain of increased pain on the emergency room. Given persistence of symptoms we will presume that patient has not passed the stone. Case discussed with urology who does not recommend further imaging. Plan for symptomatic treatment and admission for likely lithotripsy/stone removal in the morning. Patient is agreeable this plan of care. Work-up was remarkable for mild leukocytosis of 12.2 and a mild elevation of creatinine to 1.19. Does not meet criteria for JAREN however she is given IV fluids in the emergency room. Urinalysis is most consistent with inflammatory process likely from the stone however urine culture sent. Patient made in stable condition. Patient and are agreeable to this plan of care. Lab Data Labs: Laboratory Results - last 24 hr 01/20/22 01/20/22 01/20/22 15:28 15:28 16:12 WBC 12.2 H RBC 5.11 Hgb 15.3 H Hct 47.3 H MCV 92.6 MCH 29.9 MCHC 32.3 RDW Std Deviation 46.4 H RDW Coeff of Carloz 13.6 Plt Count 206 MPV 9.8 Immature Gran % (Auto) 0.300 Neut % (Auto) 88.9 H Lymph % (Auto) 5.[address] [place] % (Auto) 5.1 Eos % (Auto) 0.0 Baso % (Auto) 0.2 Absolute Neuts (auto) 10.9 H Absolute Lymphs (auto) 0.67 L Nucleated RBC % 0 Sodium Cancelled Potassium Cancelled Chloride Cancelled Carbon Dioxide Cancelled Anion Gap Cancelled BUN Cancelled Creatinine Cancelled Estim Creat Clear Calc Cancelled Est GFR (MDRD) Af Amer Cancelled Est GFR (MDRD) Non-Af Cancelled BUN/Creatinine Ratio Cancelled Glucose Cancelled Calcium Cancelled Urine Color Yellow Urine Clarity Sl. Cloudy Urine pH 6.0 Ur Specific [place] 1.025 Urine Protein 30 H Urine Glucose (UA) Normal Urine Ketones Negative Urine Occult Blood 150 H Urine Nitrite Negative Urine Bilirubin Negative Urine Urobilinogen Normal Ur Leukocyte Esterase 500 H Urine RBC 0 SEEN Urine WBC 5-10 SEEN Ur Squamous Epith Cells 0-5 SEEN Calcium Oxalate Crystal 2+ Urine Bacteria 0 SEEN Urine Mucus 0 SEEN 01/20/22 16:12 WBC RBC Hgb Hct MCV MCH MCHC RDW Std Deviation RDW Coeff of Carloz Plt Count MPV Immature Gran % (Auto) Neut % (Auto) Lymph % (Auto) [place] % (Auto) Eos % (Auto) Baso % (Auto) Absolute Neuts (auto) Absolute Lymphs (auto) Nucleated RBC % Sodium 136 Potassium 4.3 Chloride 105 Carbon Dioxide 27.0 Anion Gap 4 L BUN 24 H Creatinine 1.19 H Estim Creat Clear Calc 32.80 Est GFR (MDRD) Af Amer 56 L Est GFR (MDRD) Non-Af 46 L BUN/Creatinine Ratio 20.2 H Glucose 156 H Calcium 9.9 Urine Color Urine Clarity Urine pH Ur Specific [place] Urine Protein Urine Glucose (UA) Urine Ketones Urine Occult Blood Urine Nitrite Urine Bilirubin Urine Urobilinogen Ur Leukocyte Esterase Urine RBC Urine WBC Ur Squamous Epith Cells Calcium Oxalate Crystal Urine Bacteria Urine Mucus Discharge Plan Dx/Rx/DC Orders Clinical Impression: Calculus, ureteral, Increased nausea and vomiting, Intractable abdominal pain, Elevated serum creatinine Disposition Disposition: Acute Care Hospital [facility] Discharge Date/Time: 01/20/22 17:56
[2022-01-20 17:31] VITALS: BP 173/70; PULSE 90; RESP 14; TEMP 36.8; O2SAT 100
--- NOTE | 2022-01-20 17:36 | EKG12_ITS ---
Test Reason : PRE OP Blood Pressure : / mmHG Vent. Rate : 078 BPM Atrial Rate : 078 BPM P-R Int : 168 ms QRS Dur : 090 ms QT Int : 372 ms P-R-T Axes : 068 -03 020 degrees QTc Int : 424 ms Normal sinus rhythm Normal ECG Confirmed by EAGLE MYLES, MAGALY ([id number]), editor trade journal NANCY COELHO ([id number]) on 01/24/2022 11:39:58 AM Referred By: NERI Confirmed By:MAGALY GUILLERMO MD
--- NOTE | 2022-01-20 17:39 | PCM.HP.STD ---
HPI - General HPI Narrative REBECA FINLEY, is a 81 F who presents with a stone in the distal right ureter, severe pain and nausea and vomiting plan to admit and take to surgery for stent possible laser stone tomorrow. [facility] Medical History (Updated 01/20/22 @ 17:28 by KIRSTY Alicea) Atrial fibrillation with RVR History of DVT (deep vein thrombosis) Nonsustained ventricular tachycardia Pulmonary embolism, bilateral Home Medications hydrocodone-acetaminophen 1 tab PO Q4H PRN 3 Days #14 tab 01/19/22 [Rx Last Taken 01/20/22] aspirin 81 mg PO DAILY@0800 01/20/22 [History Last Taken 01/19/22] potassium chloride 20 meq PO DAILY 01/20/22 [History Last Taken 01/19/22] Allergy/AdvReac Type Severity Reaction Status Date / Time acetaminophen [From Tylenol] Allergy Intermediate BP Verified 01/20/22 15:15 ELEVATION apixaban [From Eliquis] AdvReac visual Verified 01/20/22 15:15 disturbance rivaroxaban [From Xarelto] AdvReac burning Verified 01/20/22 15:15 sensation, hair loss Family History Mother Hypertension Surgical History History of appendectomy History of bilateral knee replacement History of hysterectomy (~1979) Social History adopted: No household members: spouse housing: house number of children: 0 pets and animals: Yes (1) pets and animals: dog(s) history of recent travel: No Smoking Status: Never smoker alcohol intake: never substance use type: does not use caffeine: Yes Type: coffee Number of servings: 2 what type of physical activity do you participate in: walking and other frequency: daily duration: 15-30 minutes/day seatbelt use: always do you feel safe at home: Yes Vital Signs Vital Signs Vital Signs: 01/20/22 15:14 01/20/22 17:31 Temperature 97.2 F L 98.2 F Temperature Source Temporal Oral Pulse Rate 95 90 Respiratory Rate 18 14 Blood Pressure 196/84 H 173/70 H Blood Pressure Mean 121 104 Pulse Ox 100 100 Oxygen Delivery Method Room Air Room Air Weight Weight: 68.039 kg Body Mass Index (BMI) 25.0 Results Lab / Micro Data Result Diagrams: 01/20/22 15:28 01/20/22 16:12 Labs: Laboratory Results - last 24 hr 01/20/22 15:28: WBC 12.2 H, RBC 5.11, Hgb 15.3 H, Hct 47.3 H, MCV 92.6, MCH 29.9, MCHC 32.3, RDW Std Deviation 46.4 H, RDW Coeff of Carloz 13.6, Plt Count 206, MPV 9.8, Immature Gran % (Auto) 0.300, Neut % (Auto) 88.9 H, Lymph % (Auto) 5.5 L, [place] % (Auto) 5.1, Eos % (Auto) 0.0, Baso % (Auto) 0.2, Absolute Neuts (auto) 10.9 H, Absolute Lymphs (auto) 0.67 L, Nucleated RBC % 0 01/20/22 15:28: Sodium Cancelled, Potassium Cancelled, Chloride Cancelled, Carbon Dioxide Cancelled, Anion Gap Cancelled, BUN Cancelled, Creatinine Cancelled, Estim Creat Clear Calc Cancelled, Est GFR (MDRD) Af Amer Cancelled, Est GFR (MDRD) Non-Af Cancelled, BUN/Creatinine Ratio Cancelled, Glucose Cancelled, Calcium Cancelled 01/20/22 16:12: Urine Color Yellow, Urine Clarity Sl. Cloudy, Urine pH 6.0, Ur Specific [place] 1.025, Urine Protein 30 H, Urine Glucose (UA) Normal, Urine Ketones Negative, Urine Occult Blood 150 H, Urine Nitrite Negative, Urine Bilirubin Negative, Urine Urobilinogen Normal, Ur Leukocyte Esterase 500 H, Urine RBC 0 SEEN, Urine WBC 5-10 SEEN, Ur Squamous Epith Cells 0-5 SEEN, Calcium Oxalate Crystal 2+, Urine Bacteria 0 SEEN, Urine Mucus 0 SEEN 01/20/22 16:12: Sodium 136, Potassium 4.3, Chloride 105, Carbon Dioxide 27.0, Anion Gap 4 L, BUN 24 H, Creatinine 1.19 H, Estim Creat Clear Calc 32.80, Est GFR (MDRD) Af Amer 56 L, Est GFR (MDRD) Non-Af 46 L, BUN/Creatinine Ratio 20.2 H, Glucose 156 H, Calcium 9.9
[2022-01-20 18:08] VITALS: BMI 29.6
[2022-01-20] MEDS: oxyCODONE 5 MG Tablet 10 MG PO (18:11)
[2022-01-20] MEDS: 0.9% Normal Saline 1,000 ML 75 ML IV (18:11)
[2022-01-20] MEDS: Acetaminophen 325 MG Tablet 650 MG PO (18:12)
[2022-01-20 18:15] VITALS: BP 184/96; PULSE 83; RESP 18; TEMP 37.3; O2SAT 98
[2022-01-20 21:25] VITALS: BP 171/68; PULSE 85; RESP 16; TEMP 36.8; O2SAT 97
[2022-01-21] VITALS (9 sets, daily range): BP systolic 144–180; BP diastolic 61–95; PULSE 82–94; RESP 14–18; TEMP 36.7–37.6; O2SAT 92–97; BMI 29.6
[2022-01-21 06:30] LABS: Absolute Lymphocyte Count 0.61 X10^3/uL (0.83-4.51); Absolute Neutrophil Count 7.8 X10^3/uL (2.0-7.7); Basophil# 0.03 X10^3/uL; Basophil% 0.3 % (0-1); Eosinophil# 0.01 X10^3/uL; Eosinophils% 0.1 % (0-5); Hematocrit 40.5 % (37-47); Hemoglobin 12.8 g/dL (12.0-15.0); Lymphocyte # 0.61 X10^3/ul (0.83-4.51); Lymphocyte % 6.5 % (19-41); Mean Corp Hgb Conc 31.6 g/dL (32-36); Mean Corpuscular Hgb 29.5 pg (27.0-32.0); Mean Corpuscular Volume 93.3 fL (81-99); Mean Platelet Vol. 10.4 fl (6.2-12.0); Monocyte# 0.86 X10^3/uL; Monocyte% 9.2 % (0-10); NRBC Flagged by Analyzer 0 % (0-5); Neutrophil # 7.84 X10^3/uL (2.7-7.7); Neutrophil % 83.6 % (47-70); Platelet Count 173 K/mm3 (150-450); RBC Distribution Width CV 13.7 % (11.6-14.6); RBC Distribution Width SD 47.2 fl (35.1-43.9); Red Blood Count 4.34 M/mm3 (4.2-5.4); White Blood Count 9.4 K/mm3 (4.4-11.0)
[2022-01-21 06:55] LABS: Anion Gap 7 (5-15); BUN 20 mg/dL (7-18); Calcium,Total 8.7 mg/dL (8.5-10.1); Chloride 104 mmol/L (98-107); EST Glomerular Filtration Rate 57 mL/min (>60); Est Glom Filt Rate - Afr Amer 68 mL/min (>60); Estimated Creatinine Clearance 39.03 ml/min; Glucose 117 mg/dL (74-106); Potassium 3.9 mmol/L (3.5-5.1); Sodium Level 136 mmol/L (136-145)
[2022-01-21] MEDS: 0.9% Normal Saline 1,000 ML 75 ML IV ×2 (08:49→20:53)
--- NOTE | 2022-01-21 08:51 | NURSING ---
This RN is aware of Vital Signs taken by Bronwyn Dolan RN
--- NOTE | 2022-01-21 09:01 | NURSING ---
Pt states she has not had any pain medication since last evening. Does not feel nauseated or sore. Feels great. Pt inquiring if she still has to have procedure done if she is feeling better and thinks maybe she could have passed the kidney stone. this nurse called and paged Dr. Adrian via gluing machine operator automatic, waiting call back.
--- NOTE | 2022-01-21 09:04 | CT_ITS ---
INDICATION: kidney stone EXAMINATION: CT ABDOMEN AND PELVIS WITHOUT CONTRAST - CT Abdomen And Pelvis W/O Contrast Injection TECHNIQUE: Helically acquired images were obtained of the abdomen and pelvis without oral or IV contrast. A radiation dose optimization technique was used for this scan. IV Contrast dosage and agent: None. Oral contrast: None. COMPARISON: 01/19/2022.. FINDINGS: LOWER CHEST: Lung bases are clear. No cardiomegaly or pericardial effusion. LIVER: Homogeneous. No focal mass. GALLBLADDER AND BILIARY TREE: No calcified gallstones. No gallbladder wall thickening or pericholecystic stranding. No intra- or extrahepatic biliary ductal dilation. PANCREAS: No focal cystic or solid mass. SPLEEN: Normal size without focal cystic or solid mass. ADRENAL GLANDS: No nodules. KIDNEYS AND URETERS: Bilateral renal cysts are visualized. Mild stranding visualized in the right perirenal fat planes Mild to moderate right hydronephrosis and proximal right hydroureter, stranding visualized surrounding the mid ureter, there is a 4 mm stone visualized at the right ureterovesical junction most likely causing the obstruction. No evidence of left hydronephrosis or hydroureter is seen. PERITONEUM: No ascites or free air. No other fluid collection. BOWEL: No evidence of acute appendicitis No stomach or bowel distension. No focal inflammatory change. Scattered stool visualized in the large bowel. Diverticular disease but no evidence of acute diverticulitis. LYMPH NODES: No enlarged mesenteric or retroperitoneal lymph nodes. VESSELS: Aorta is non-dilated. URINARY BLADDER: The urinary bladder is not distended, a 4 mm calcification is visualized within the urinary bladder.. REPRODUCTIVE ORGANS: No pelvic masses. ABDOMINAL WALL: No discrete abdominal or pelvic wall hernia. BONES: No lytic or blastic abnormality. Degenerative bone changes with mild exaggeration of the normal lordosis of the columns of the lumbar spine is seen. CT/Abdomen/Pelvis without Cont IMPRESSION: Stranding of the right perirenal fat planes and stranding visualized surrounding the right ureter with mild to moderate right hydronephrosis and hydroureter no evidence of obstructing stone is seen. 4 mm calcification visualized at the right ureterovesical junction most likely causing the obstruction. Correlate for pyelonephritis. Electronically Signed: Romulo Dubois MD at 11:39 EDT ,
--- NOTE | 2022-01-21 14:35 | BLB_PTH ---
PATIENT: REBECA FINLEY LOC: MS3 U#:[id number] AGE/SX: 81/F ROOM: [facility] RE01/20/[address]: Dr. Choco Adrian MD : [id number] BED: 1 DIS: 01/22/2022 SPEC #: [id number] RECD: 01/24/22 07:46 STATUS: SHANNAN WELLS #: [id number] GOKUL: 01/21/22 14:[address]: Choco Adrian DEPT: SURGICAL PATHOLOGY RECD BY: Key Freeman ENTERED: 01/24/22 08:37 SP TYPE: TURB OTHR DR: Dr. Nhi Kirby, DO Tissues: Urinary bladder, NOS Procedures: Surgery Specimen Level V HEADER OPERATION: Cysto, insertion stent, TURB PRE-OP DIAGNOSIS: Kidney stone TISSUE SUBMITTED: Bladder tumor MICROSCOPIC DIAGNOSIS Bladder tumor, TUR: Papillary urothelial carcinoma. See cancer summary in the comment section. SJ:macie 01/25/2022 COMMENT BLADDER CANCER (TUR) SUMMARY Procedure: Transurethral resection of bladder (TURBT) Tumor site: Not specified Histologic type: Papillary urothelial carcinoma, noninvasive Histologic grade: Low grade (1/3) Tumor configuration: Papillary Muscularis propria presence: No muscularis propria (detrusor muscle) identified. Lymphvascular invasion: Not identified. Tumor extension: Noninvasive papillary carcinoma. Additional pathologic findings: Focal mild chronic inflammation and fragments of stones. The above summary is in compliance with [employer] [place] [employer] (CAP) Cancer Protocols Checklist and [place] [employer] Committee on Cancer (AJCC), Staging Manual, 8th Ed. MICROSCOPIC DESCRIPTION Slides are reviewed. GROSS DESCRIPTION Received in fixative is one container labeled with the patient's name and designated bladder tumor. The specimen consists of multiple irregular fragments of light machuca soft tissue that in aggregate measure 2 x 0.6 x 0.1 cm. A few fragments of stones are also noted. The specimen is totally submitted in one cassette. / ANÍBAL:macie 01/24/2022 TC:0 CPT: 10485
--- NOTE | 2022-01-21 15:14 | PCM.DC ---
Discharge Instructions Diet Discharge Diet: No restrictions Activity Discharge Activity: Return to Normal Activity and May Not Drive (while taking narcotic pain medications.) Dressing / Incision Call your doctor if you observe: Fever of 101 or Higher Follow Up Care Please Follow Up With: Choco Adrian MD When: Call [phone] for an appointment Test Results: Test results from this visit will be discussed in further detail at your follow-up appointment, if applicable. Discharge Plan Admission Admit Date/Time: 01/20/22 17:42 Primary Reason for Your Visit: kidney stone Attending Provider: Choco Adrian Primary Care Provider: Nhi Kirby Discharge Orders/Prescriptions Prescriptions: New cephalexin 500 mg capsule 500 mg PO BID Qty: 10 RF: 0 oxycodone-acetaminophen 5-325 mg tablet 1 tab PO Q6H PRN (Reason: pain) 7 Days Qty: 10 RF: 0 Continued hydrocodone-acetaminophen 5-325 mg tablet 1 tab PO Q4H PRN (Reason: pain) 3 Days Qty: 14 RF: 0 aspirin 81 mg tablet,chewable 81 mg PO DAILY@0800 RF: 0 potassium chloride 20 mEq tablet,ER particles/crystals 20 meq PO DAILY RF: 0 Referrals / Follow Up: Choco Adrian MD [STAFF PHYSICIAN] - Nhi Kirby DO [Primary Care Provider] - Disposition Discharge Orders: Discharge Patient (Routine); Ordered 01/21/22 Ordered By: Dr. Choco Adrian
--- NOTE | 2022-01-21 16:13 | PCM.OPRPT ---
Report of Operation Date of Procedure: 01/21/22 Pre-Operative Diagnosis: Right ureteral calculi Post-Operative Diagnosis: Same plus bladder tumor medium size Surgery/Procedure Performed:: Cystoscopy and right stent placement for infected kidney stone and transurethral resection of a tumor medium size from the left side of the bladder Description of Surgical Findings:: Indication this is a 81-year-old female presented to the hospital with severe pain from a kidney stone should not been able to pass it repeat CAT scan was done to confirm that the stone was still there. She was taken to the operating room today for intervention on the kidney stone. After general anesthesia I went in the bladder with a 21 Macanese rigid cystourethroscope cannulated the right ureteral orifice with a Glidewire immediately I got a return of thick pus infected looking urine from the right side at this point decided not to proceed with intervention with laser and put a wire up into the right kidney and then place a stent on the right side to drain the kidney. And then we inspected the bladder I saw that there was a tumor emanating above the left ureteral orifice that was about 2 cm in size I then switched over to the bipolar Olympus system resected this tumor completely cauterized the base extensively and then inspected the rest of the bladder there is no other tumors throughout the bladder prepped and hemostasis was obtained patient's bladder was drained the stent was left in place and she will follow-up in about a week to review the tumor and whether bring her back to surgery to laser the stone and remove the stent on the right side at a different setting. Surgeon: mi Type of Anesthesia: General Drains: stent Admit VTE Documentation VTE Present on Admission: No VTE Mechan Device Prophylaxis: SCD's VTE Pharm Prophylaxis ordered?: No
[2022-01-21] MEDS: Cefazolin 2 GM in 0.9% Normal Saline 100 ML IV (16:22)
--- NOTE | 2022-01-21 17:02 | NURSING ---
Back to floor at this time.
[2022-01-21] MEDS: Cephalexin 500 MG Capsule PO (20:54)
[2022-01-21] MEDS: oxyCODONE 5 MG Tablet 10 MG PO (22:26)
[2022-01-22 03:30] VITALS: BP 148/94; PULSE 89; RESP 16; TEMP 37.3; O2SAT 95
[2022-01-22] MEDS: Potassium Chloride Oral Tablet 20 MEQ PO (08:03)
--- NOTE | 2022-01-22 10:59 | PCM.PN.BLA ---
Progress Note doing better afte stent placed home today will do EKG prior to discharge.
[2022-01-22] MEDS: Cephalexin 500 MG Capsule PO (11:24)
--- NOTE | 2022-01-22 12:49 | CASEMGMT ---
RN HONG NOTE: Intro role of CM to patient and and [facility] form explained re: Observation status for treatment of kidney stone. Explained hospitalization will be paid per her insurance policy for Outpatient billing and condition will continue to be evaluated for Inpt necessity. Also let pt know that [facility] sends paper in the billing packet with their phone number if questions arise. Discussed Pharmacy section of [facility] form and self administered medication guideline. Pt verbalizes understanding and does not have further questions. Form signed, copy made and placed in chart, and original given to pt. Carolyn MARTINO RN CM
== END 2022-01-22 12:32 | disposition home or self-care (01) ==
LOC: ED 17:40 → MS3 17:43
PROVIDERS: Nurse Practitioner; Admitting Provider Urology; Emergency Provider Emergency Medicine; PCP Internal Medicine; Visit Provider Urology
PROC: 0TJ98ZZ Inspection of Ureter, Via Natural or Artificial Opening Endoscopic (ICD-10-PCS; CPT 52352; principal; 2022-01-21 14:25)
DX: N13.2 Hydronephrosis with renal and ureteral calculous obstruction (principal); C67.6 Malignant neoplasm of ureteric orifice; I48.91 Unspecified atrial fibrillation; R11.2 Nausea with vomiting, unspecified; Z79.82 Long term (current) use of aspirin; Z86.718 Personal history of other venous thrombosis and embolism; Z86.711 Personal history of pulmonary embolism
CPT/HCPCS: 52235; 52332; 00912; 36415; 74176; 76000; 80048; 81001; 85025; 87086; 87088; 88307; 93005; 96361; 96374; 96375; 96376; 97802; 99218; 99284; J7030; C1769; C2617; G0378; J2405

== ENCOUNTER 2022-02-26 09:00 | Inpatient (IN) | payer MEDICARE, OTHER, SELFPAY ==
[2022-02-26] VITALS (17 sets, daily range): BP systolic 121–176; BP diastolic 70–107; PULSE 83–114; RESP 16–28; TEMP 36.2–36.8; O2SAT 93–100; BMI 27.4; BMI 30.4
--- NOTE | 2022-02-26 09:14 | EKG12_ITS ---
Test Reason : SOB Blood Pressure : / mmHG Vent. Rate : 102 BPM Atrial Rate : 102 BPM P-R Int : 186 ms QRS Dur : 138 ms QT Int : 368 ms P-R-T Axes : 059 020 -10 degrees QTc Int : 479 ms Sinus tachycardia with Premature atrial complexes Right bundle branch block T wave abnormality, consider inferior ischemia Abnormal ECG Confirmed by REGINA MYLES, MYRA ([id number]), supervising editor news reel SAKINA MORALES ([id number]) on 03/01/2022 1:11:32 PM Referred By: NATHAN Confirmed By:MYRA TAPIA MD
--- NOTE | 2022-02-26 09:15 | CT_ITS ---
We are attempting to reach an attending provider to discuss findings. An addendum with communication details will be sent when the communication is complete. STUDY: CTA CHEST REASON FOR EXAM: Female, 81 years old. history of PE RADIATION DOSAGE (If Supplied By Facility): CTDIvol = ( 9.84 ) mGy, DLP = ( 366.83 ) mGycm TECHNIQUE: The examination was performed with the intravenous administration of IV 75mL Isovue-370. Post-processing of the angiographic images was performed, with multiplanar reformation and 3D reconstruction. Individualized dose optimization techniques were used for this CT. COMPARISON: None. FINDINGS: There is extensive pulmonary embolus. This extends from the distal aspect of the main pulmonary artery into the right and left pulmonary arteries. Thrombus within the distal left pulmonary artery measures 2.02 cm in length by 0.74 cm in AP dimension. Pulmonary embolus within the distal left main pulmonary artery measures 1.19 cm transverse with additional low foci of thrombus extending into the left lower lobe are pulmonary artery. On the right in the distal right pulmonary artery there is thrombus measuring 1.51 cm transverse by 2.13 cm AP. This extends into the right middle lobar and right lower lobar pulmonary arteries. Normal thoracic aorta and visualized great vessels. There is no demonstrated aortic dissection. Normal heart and pericardium. Normal mediastinum. Normal hilar regions. Normal visualized trachea and bronchi. The lungs are well expanded. Minimal biapical fibrosis. Mild fibrosis anterior right middle lobe. Mild fibrosis posterior medial right base and posterior left base. Calcified granuloma lateral left base. Normal pleura. Normal chest wall structures. Normal osseous structures. Simple cyst lateral midpole left kidney 4.8 cm transverse dimension. There is a small hiatal hernia. CT/CTA Chest W/WO Contrast IMPRESSION: Extensive pulmonary emboli throughout the main pulmonary artery, right pulmonary artery, left pulmonary artery and more peripheral pulmonary arterial branches detailed in body of report. Pulmonary fibrosis detailed above. Calcified granuloma left lower lobe. Simple cyst of the left kidney. Electronically Signed: Abraham Chairez MD, YUN at 10:50 EDT ,
--- NOTE | 2022-02-26 09:16 | EX.ED.DYSGE1 ---
HPI <KIRSTY Alicea - Last Filed: 02/26/22 11:10> History of Present Illness Chief Complaint: Shortness of Breath Narrative Narrative: 81-year-old female with history of osteoarthritis, kidney stones, pulmonary embolus who is not currently on any blood thinning medicine presents to the emergency department with complaints of shortness of breath on exertion that started today. Over the last 2 weeks, patient had 2 kidney surgeries one of the kidney stent the other was a lithotripsy secondary to a kidney stone and infection. Patient states this morning she was walking to the other into the house and became very short of breath and is here for evaluation. Patient denies any cough, patient denies any fever, chills, infectious symptoms. Denies any recent illnesses. PFSH <KIRSTY Alicea - Last Filed: 02/26/22 11:10> [facility] Medical History (Updated 02/26/22 @ 10:[address] Javad Mccloud DO) Atrial fibrillation with RVR History of DVT (deep vein thrombosis) Nonsustained ventricular tachycardia Pulmonary embolism, bilateral Home Medications hydrocodone-acetaminophen 1 tab PO Q4H PRN 3 Days #14 tab 01/19/22 [Rx Last Taken 01/20/22] aspirin 81 mg PO DAILY@0800 01/20/22 [History Last Taken 01/19/22] potassium chloride 20 meq PO DAILY 01/20/22 [History Last Taken 01/19/22] cephalexin 500 mg PO BID #10 cap 01/21/22 [Rx Last Taken Unknown] oxycodone-acetaminophen 1 tab PO Q6H PRN 7 Days #10 tab 01/21/22 [Rx Last Taken Unknown] Allergy/AdvReac Type Severity Reaction Status Date / Time acetaminophen [From Tylenol] Allergy Intermediate BP Verified 02/26/22 09:00 ELEVATION apixaban [From Eliquis] AdvReac visual Verified 02/26/22 09:00 disturbance rivaroxaban [From Xarelto] AdvReac burning Verified 02/26/22 09:00 sensation, hair loss Family History Mother Hypertension Surgical History History of appendectomy History of bilateral knee replacement History of hysterectomy (~1979) Social History adopted: No household members: spouse housing: house number of children: 0 pets and animals: Yes (1) pets and animals: dog(s) history of recent travel: No Smoking Status: Never smoker alcohol intake: never substance use type: does not use caffeine: Yes Type: coffee Number of servings: 2 what type of physical activity do you participate in: walking and other frequency: daily duration: 15-30 minutes/day seatbelt use: always do you feel safe at home: Yes ROS <KIRSTY Alicea - Last Filed: 02/26/22 11:10> ROS ED ROS Narrative Constitutional: Negative for fever, chills, weight loss, weakness Eyes: Negative for vision loss, vision change, double vision ENT: Negative for any sore throat, ear pain, congestion Cardiovascular: Negative for any chest pain, tightness, palpitations Respiratory: Negative for any cough, sputum production, hemoptysis, orthopnea. Positive for dyspnea, dyspnea on exertion Gastrointestinal: Negative for any abdominal pain, nausea, vomiting, diarrhea, constipation, blood in stool, blood in vomit : Negative for any urinary frequency, dysuria, retention, blood in urine Muscle skeletal: Negative for any muscle joint pain, stiffness, myalgias, arthralgias, neck pain, back pain Neurological: Negative for any headache, syncope, numbness or tingling, dizziness Skin: Negative for any rashes, lumps, itching, abrasions, lacerations Psychiatric: Negative for any depression, anxiety, stress, suicidal ideation, homicidal ideation Hematologic: Negative for any easy bruising, excessive bruising, easy bleeding Allergies: Negative for any eczema, hives, rash EXAM <KIRSTY Alicea - Last Filed: 02/26/22 11:10> Physical Exam Narrative Exam Narrative: Vital signs reviewed. Patient is tachypneic, tachycardic. History of pulmonary embolus 2+ years ago currently not on any anticoagulation medicine. She is speaking complete sentences. HEET: Head normocephalic atraumatic, TMs clear bilaterally. Posterior pharynx is clear, moist mucous membranes. Nares clear bilaterally. Neck: Supple with no lymphadenopathy or tenderness. No signs of meningismus, negative jolt sign. Cardiac: Regular rate and rhythm no murmurs gallops or rubs, equal peripheral pulses bilaterally. Respiratory: Lungs clear to auscultation bilaterally. No chest tenderness. Abdomen: Soft, nontender, nondistended. No abdominal bruit or pulsatile masses. No hepatosplenomegaly Extremities: No peripheral edema, no signs of gross trauma or deformity. Active full range of motion of all extremities. Neuro: Cranial nerves II through XII intact, no focal neurological deficits. Skin: Clean dry and intact with no rash, purpura, petechiae, vesicles or pustules. Backs/flank: No CVA tenderness, no midline spinal tenderness, no deformity. Psych: Normal mood and affect. No SI, HI or acute psychosis. Const Vital Signs: 02/26/22 09:01 02/26/22 09:30 02/26/22 10:00 Temperature 97.1 F L Temperature Source Temporal Pulse Rate 98 114 H Respiratory Rate 16 28 H Respiratory Effort Short of Breath Respiratory Depth Normal Respiratory Pattern Normal Blood Pressure 175/107 H 153/94 H Blood Pressure Mean 129 113 Pulse Ox 94 93 Oxygen Delivery Method Room Air Room Air Room Air Positive well nourished and well developed General Appearance ED: well developed <Dr. Javad Mccloud DO - Last Filed: 02/26/22 11:09> Physical Exam Const Vital Signs: 02/26/22 09:01 02/26/22 09:30 02/26/22 10:00 Temperature 97.1 F L Temperature Source Temporal Pulse Rate 98 114 H Respiratory Rate 16 28 H Respiratory Effort Short of Breath Respiratory Depth Normal Respiratory Pattern Normal Blood Pressure 175/107 H 153/94 H Blood Pressure Mean 129 113 Pulse Ox 94 93 Oxygen Delivery Method Room Air Room Air Room Air [facility] <KIRSTY Alicea - Last Filed: 02/26/22 11:10> [facility] Narrative Medical decision making narrative: Patient appears well at rest, patient is tachycardic, tachypneic, blood pressure stable. Patient presents emerged department with shortness of breath on exertion, patient had surgery 2 weeks ago. Patient did receive a full work-up secondary to concerning for a pulmonary embolus. Patient CBC was unremarkable, patient's chemistries were unremarkable however patient did have elevated troponin at 609 with elevated BNP at 121.8. Patient's CT scan of the chest shows extensive pulmonary emboli throughout the main pulmonary artery, right pulmonary artery, left pulmonary artery and more peripheral pulmonary artery branches detailed in body of report. I did speak with the radiologist regarding this read. I do believe that this is causing the elevated high sensory troponin at 609 with elevated BNP at 121.8. Patient while at rest was unremarkable patient was given oxygen for comfort. Patient was started on IV heparin drip. Patient's EKG did show a sinus tachycardia with premature atrial complexes, a right bundle branch block which is new for her. I do believe this is all secondary to her pulmonary embolus. Patient be admitted to the hospital, she admitted under Dr. Gutierrez. Patient stable for admission. Lab Data Attestation: I reviewed the patient's lab results. Labs: Laboratory Results - last 24 hr 02/26/22 02/26/22 02/26/22 09:30 09:30 09:30 WBC 5.2 RBC 4.82 Hgb 14.3 Hct 44.8 MCV 92.9 MCH 29.7 MCHC 31.9 L RDW Std Deviation 46.3 H RDW Coeff of Carloz 13.6 Plt Count 156 MPV 9.7 Immature Gran % (Auto) 0.400 Neut % (Auto) 74.7 H Lymph % (Auto) 16.2 L [place] % (Auto) 5.8 Eos % (Auto) 2.1 Baso % (Auto) 0.8 Absolute Neuts (auto) 3.9 Absolute Lymphs (auto) 0.84 Nucleated RBC % 0 Sodium 141 Potassium 3.3 L Chloride 109 H Carbon Dioxide 27.0 Anion Gap 5 BUN 18 Creatinine 0.73 Estim Creat Clear Calc 35.88 Est GFR (MDRD) Af Amer 97 Est GFR (MDRD) Non-Af 81 BUN/Creatinine Ratio 24.5 H Glucose 139 H Calcium 8.8 Troponin I High Sens 609 H* B-Natriuretic Peptide 121.8 H Radiography Diagnostic Testing: Clinical Impression(s) from Imaging Studies Chest CTA 02/26/22 09:15 IMPRESSION: Extensive pulmonary emboli throughout the main pulmonary artery, right pulmonary artery, left pulmonary artery and more peripheral pulmonary arterial branches detailed in body of report. Pulmonary fibrosis detailed above. Calcified granuloma left lower lobe. Simple cyst of the left kidney. Electronically Signed: Abraham Chairez MD, YUN at 10:50 EDT , ADDENDUM: 02/26/22 1101 IMPRESSION: Extensive pulmonary emboli throughout the main pulmonary artery, right pulmonary artery, left pulmonary artery and more peripheral pulmonary arterial branches detailed in body of report. Pulmonary fibrosis detailed above. Calcified granuloma left lower lobe. Simple cyst of the left kidney. N.B. : The above Results were Read Back by Abraham Chairez MD, YUN to Javad Rg Dr, MD, and understanding confirmed on 02/26/2022 10:54:57 (ET). Electronically Signed: Abraham Chairez MD, JD at 10:50 EDT , ADDENDUM: 02/26/22 1103 IMPRESSION: undefined EKG Sinus tachycardia: Attestation: I personally reviewed and interpreted this EKG as follows: Comments: Sinus tachycardia with premature atrial complexes, right bundle branch block, rate 102 bpm, NM interval 186 ms, QRS duration [address] elevation, no acute infarct noted. The right bundle branch block is new. <Dr. Javad Mccloud DO - Last Filed: 02/26/22 11:09> [facility] Narrative Medical decision making narrative: I performed a history and physical examination of the patient and discussed management plan with the physician assistant professor of physics. I reviewed the physician assistant professor of physics's note and agree with the documented findings and plan of care. Patient's EKG is a new right bundle branch block. Troponin elevated 609. She has submassive pulmonary embolism bilaterally. She is not requiring any oxygen. She has not experienced any pain. She was placed on a heparin drip and plan is admission. Javad Mccloud DO MS Lab Data Attestation: I reviewed the patient's lab results. Labs: Laboratory Results - last 24 hr 02/26/22 02/26/22 02/26/22 09:30 09:30 09:30 WBC 5.2 RBC 4.82 Hgb 14.3 Hct 44.8 MCV 92.9 MCH 29.7 MCHC 31.9 L RDW Std Deviation 46.3 H RDW Coeff of Carloz 13.6 Plt Count 156 MPV 9.7 Immature Gran % (Auto) 0.400 Neut % (Auto) 74.7 H Lymph % (Auto) 16.2 L [place] % (Auto) 5.8 Eos % (Auto) 2.1 Baso % (Auto) 0.8 Absolute Neuts (auto) 3.9 Absolute Lymphs (auto) 0.84 Nucleated RBC % 0 Sodium 141 Potassium 3.3 L Chloride 109 H Carbon Dioxide 27.0 Anion Gap 5 BUN 18 Creatinine 0.73 Estim Creat Clear Calc 35.88 Est GFR (MDRD) Af Amer 97 Est GFR (MDRD) Non-Af 81 BUN/Creatinine Ratio 24.5 H Glucose 139 H Calcium 8.8 Troponin I High Sens 609 H* B-Natriuretic Peptide 121.8 H Radiography Diagnostic Testing: Clinical Impression(s) from Imaging Studies Chest CTA 02/26/22 09:15 IMPRESSION: Extensive pulmonary emboli throughout the main pulmonary artery, right pulmonary artery, left pulmonary artery and more peripheral pulmonary arterial branches detailed in body of report. Pulmonary fibrosis detailed above. Calcified granuloma left lower lobe. Simple cyst of the left kidney. Electronically Signed: Abraham Chairez MD, JD at 10:50 EDT , ADDENDUM: 02/26/22 1101 IMPRESSION: Extensive pulmonary emboli throughout the main pulmonary artery, right pulmonary artery, left pulmonary artery and more peripheral pulmonary arterial branches detailed in body of report. Pulmonary fibrosis detailed above. Calcified granuloma left lower lobe. Simple cyst of the left kidney. N.B. : The above Results were Read Back by Abraham Chairez MD, JD to Javad Rg Dr, MD, and understanding confirmed on 02/26/2022 10:54:57 (ET). Electronically Signed: Abraham Chairez MD, JD at 10:50 EDT , ADDENDUM: 02/26/22 1103 IMPRESSION: undefined <KIRSTY Alicea - Last Filed: 02/26/22 11:10> Critical Care Time Critical Care Time: Yes Critical care time (excluding procedures): 30-74 minutes (35) Discharge Plan Dx/Rx/DC Orders Clinical Impression: Bilateral pulmonary embolism, Elevated troponin Disposition Disposition: Acute Care Hospital [facility]
[2022-02-26 09:40] LABS: Absolute Lymphocyte Count 0.84 X10^3/uL (0.83-4.51); Absolute Neutrophil Count 3.9 X10^3/uL (2.0-7.7); Basophil# 0.04 X10^3/uL; Basophil% 0.8 % (0-1); Eosinophil# 0.11 X10^3/uL; Eosinophils% 2.1 % (0-5); Hematocrit 44.8 % (37-47); Hemoglobin 14.3 g/dL (12.0-15.0); Lymphocyte # 0.84 X10^3/ul (0.83-4.51); Lymphocyte % 16.2 % (19-41); Mean Corp Hgb Conc 31.9 g/dL (32-36); Mean Corpuscular Hgb 29.7 pg (27.0-32.0); Mean Corpuscular Volume 92.9 fL (81-99); Mean Platelet Vol. 9.7 fl (6.2-12.0); Monocyte% 5.8 % (0-10); NRBC Flagged by Analyzer 0 % (0-5); Neutrophil # 3.88 X10^3/uL (2.7-7.7); Neutrophil % 74.7 % (47-70); Platelet Count 156 K/mm3 (150-450); RBC Distribution Width CV 13.6 % (11.6-14.6); RBC Distribution Width SD 46.3 fl (35.1-43.9); Red Blood Count 4.82 M/mm3 (4.2-5.4); White Blood Count 5.2 K/mm3 (4.4-11.0)
[2022-02-26 10:08] LABS: BNP,B-Type NATRIURETIC PEPTIDE 121.8 pg/mL (0-100)
[2022-02-26 10:12] LABS: Anion Gap 5 (5-15); BUN 18 mg/dL (7-18); BUN/Creat Ratio 24.5 RATIO (10-20); Calcium,Total 8.8 mg/dL (8.5-10.1); Chloride 109 mmol/L (98-107); Creatinine, Serum 0.73 mg/dL (0.55-1.02); EST Glomerular Filtration Rate 81 mL/min (>60); Est Glom Filt Rate - Afr Amer 97 mL/min (>60); Estimated Creatinine Clearance 35.88 ml/min; Glucose 139 mg/dL (74-106); Potassium 3.3 mmol/L (3.5-5.1); Sodium Level 141 mmol/L (136-145); Troponin-I HS 609 pg/mL (3.0-54.0)
--- NOTE | 2022-02-26 10:37 | HP.PCM.HOS_ITS ---
HPI - General General Date of Admission: 02/26/22 HPI Narrative REBECA FINLEY, is a 81 F with a PMh as outlined who presents via the ED on 02/26/2022 with a complaint of shortness of breath which worsened with exertion and started on the day of admission. She denied any chest pain, palpitations, dizziness, nausea or vomiting. REview of systems was otherwise negative. She had recently had 2 procedures done- lithotripsy and kidney stent placement for kidney stone. Vitals in the ED were BP of 153/94, NV of 114, RR of 28 and she was saturating at 93% on room air. CBC was unremarkable. BMp showed potassium of 3.3 and initial tropnin was 609 and BNP was 121.8. 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 She was on anticoagulation for a while, but subsequently stopped. CTA of the chest showed bilateral PE. She is being admitted to be managed for submassive PE, o/a of bilateral PE with evidence of right heart strain evidenced by elevated troponin and BNP. Of note, patient and her were accompanied by Dr Carvajal, who is a family friend and her medical power of ip attorney. According to him, during patient's previous episode of PE which happened after she had knee surgery, she developed arrythmias, precisely ventricular tachycardia o./a of the PE, as well as afib. She therefore required admission to the ICU. During my evaluation, patient's oxygen saturation dropped to the mid 80s when she got up to use the commode. I therefore think it is prudent to admit patient to the ICU at least overnight. [facility] Medical History (Updated 02/26/22 @ 10:[address] Javad Mccloud, ) Atrial fibrillation with RVR History of DVT (deep vein thrombosis) Nonsustained ventricular tachycardia Pulmonary embolism, bilateral Home Medications hydrocodone-acetaminophen 1 tab PO Q4H PRN 3 Days #14 tab 01/19/22 [Rx Last Taken 01/20/22] aspirin 81 mg PO DAILY@0800 01/20/22 [History Last Taken 01/19/22] potassium chloride 20 meq PO DAILY 01/20/22 [History Last Taken 01/19/22] cephalexin 500 mg PO BID #10 cap 01/21/22 [Rx Last Taken Unknown] oxycodone-acetaminophen 1 tab PO Q6H PRN 7 Days #10 tab 01/21/22 [Rx Last Taken Unknown] Allergy/AdvReac Type Severity Reaction Status Date / Time acetaminophen [From Tylenol] Allergy Intermediate BP Verified 02/26/22 09:00 ELEVATION apixaban [From Eliquis] AdvReac visual Verified 02/26/22 09:00 disturbance rivaroxaban [From Xarelto] AdvReac burning Verified 02/26/22 09:00 sensation, hair loss Family History Mother Hypertension Surgical History History of appendectomy History of bilateral knee replacement History of hysterectomy (~1979) Social History adopted: No household members: spouse housing: house number of children: 0 pets and animals: Yes (1) pets and animals: dog(s) history of recent travel: No Smoking Status: Never smoker alcohol intake: never substance use type: does not use caffeine: Yes Type: coffee Number of servings: 2 what type of physical activity do you participate in: walking and other frequency: daily duration: 15-30 minutes/day seatbelt use: always do you feel safe at home: Yes ROS Constitutional Constitutional: Reports night sweats; Denies anorexia, chills, fatigue, malaise or weakness Eyes Eyes: Denies change in vision ENT HEENT: Denies dysphagia or epistaxis Cardiovascular Cardiovascular: Reports dyspnea on exertion; Denies chest pain, lightheadedness, orthopnea, palpitations, paroxysmal nocturnal dyspnea, rapid heart rate or syncope Respiratory/Chest Respiratory/Chest: Denies cough, hemoptysis, shortness of breath at rest or shortness of breath with exertion Gastrointestinal Gastrointestinal: Denies abdominal pain, constipation, dyspepsia, nausea or vomiting Genitourinary Genitourinary: Denies burning urination or dysuria Musculoskeletal Musculoskeletal: Denies joint pain Neurologic Neurologic: Denies confusion, dizziness or focal weakness Psychiatric Psychiatric: Denies anxiety or depression Hematologic/Lymphatic Hematologic/Lymphatic: Denies anemia Vital Signs Vital Signs Vital Signs: 02/26/22 09:01 02/26/22 09:30 02/26/22 10:00 Temperature 97.1 F L Temperature Source Temporal Pulse Rate 98 114 H Respiratory Rate 16 28 H Respiratory Effort Short of Breath Respiratory Depth Normal Respiratory Pattern Normal Blood Pressure 175/107 H 153/94 H Blood Pressure Mean 129 113 Pulse Ox 94 93 Oxygen Delivery Method Room Air Room Air Room Air Weight Weight: 155 lb Body Mass Index (BMI) 27.4 Physical Exam Const alert, oriented x3 and no apparent distress General Appearance: cooperative HEENT normocephalic, head/scalp atraumatic, hearing grossly normal bilaterally and moist oral mucous membranes Eyes PERRL, EOMs intact bilaterally and conjunctivae normal Neck no lymphadenopathy, supple and no JVD Resp Resp Narrative: tachypneic, diminished breath sounds bibasally, no wheezes or crackles. Cardio regular rhythm, S1 normal heart sound, S2 normal heart sound and no murmurs Cardio Narrative: tachycardic GI normal to inspection, nondistended, normoactive bowel sounds, soft to palpation, non-tender and non-distended Extremity normal to inspection, full ROM and no clubbing, cyanosis or edema Peripheral Pulses: Yes pulses 2+ throughout Skin no rashes or lesions noted Neuro oriented x3, CN's II-XII intact bilaterally and moves all extremities Sensorium / Orientation: awake and alert Psych affect normal Results Lab / Micro Data Result Diagrams: 02/26/22 09:30 02/26/22 09:30 Labs: Laboratory Results - last 24 hr 02/26/22 09:30: WBC 5.2, RBC 4.82, Hgb 14.3, Hct 44.8, MCV 92.9, MCH 29.7, MCHC 31.9 L, RDW Std Deviation 46.3 H, RDW Coeff of Carloz 13.6, Plt Count 156, MPV 9.7, Immature Gran % (Auto) 0.400, Neut % (Auto) 74.7 H, Lymph % (Auto) 16.2 L, [place] % (Auto) 5.8, Eos % (Auto) 2.1, Baso % (Auto) 0.8, Absolute Neuts (auto) 3.9, Absolute Lymphs (auto) 0.84, Nucleated RBC % 0 02/26/22 09:30: Sodium 141, Potassium 3.3 L, Chloride 109 H, Carbon Dioxide 27.0, Anion Gap 5, BUN 18, Creatinine 0.73, Estim Creat Clear Calc 35.88, Est GFR (MDRD) Af Amer 97, Est GFR (MDRD) Non-Af 81, BUN/Creatinine Ratio 24.5 H, Glucose 139 H, Calcium 8.8, Troponin I High Sens 609 H* 02/26/22 09:30: B-Natriuretic Peptide 121.8 H Assessment & Plan Assessment/Plan (1) Pulmonary embolism, bilateral: PLAN: #Bilateral submassive PE * admit to ICU due to ehr previous history of developing severe arrhythmias whilst being treated for bilateral submassive PE * has evidence of right heart strain with elevated BNP and troponin; also tachypneic and tachycardic * CTA of the chest showed bilateral PE * start on heparin drip * get 2D echo * consult pulmonology * low threshold for transfer to ICU if she deteriorates * oxygen as needed and brreathing treatments with bronchodilators * will need anticoagulation for life since this is her second episode of PE * #Kidney stone s/p recent stent placement * this was complicated by infection. * on keflex, to complete the prescribec course. * #DVT prophylaxis: not indicated as she is on heparin drip Code status: full code * Charges/Coding Visit Charges Inpatient E&M: 03373 Disch Hosp
--- NOTE | 2022-02-26 10:38 | NURSING ---
HOSPITALIST FOR DR ECHOLS
--- NOTE | 2022-02-26 10:58 | NURSING ---
PCU [facility]OR[facility] BILATERAL PE
[2022-02-26] MEDS: HEPARIN/D5w 25,000 UNITS 25,000 UNITS/250 ML IV.SOLN. 10 UNITS CONT INF (11:28)
[2022-02-26] MEDS: Heparin Injection (Vial) 5,000 UNIT/ML VIAL 4500 UNIT IV (11:28)
[2022-02-26 11:34] LABS: Partial Thromboplast Time 30.6 Seconds (24.1-36.2); Prothrombin Time (Protime)PT. 13.3 SECONDS (11.7-14.9)
--- NOTE | 2022-02-26 11:36 | NURSING ---
NEW ROOM ICU 1
--- NOTE | 2022-02-26 12:04 | ECHOD_ITS ---
Reason For Study: Bilateral PE Procedure This was a 2D Doppler, Color Flow transthoracic echocardiogram. Exam performed portable in patient room. Left Ventricle Normal LV size. D shaped septum in diastole. Left ventricular systolic function is normal. The estimated ejection fraction is 55 %. Stage 1 diastolic dysfunction. No regional wall motion abnormalities noted. Right Ventricle Normal RV size. Normal systolic function. Atria Normal left atrium. Normal right atrium. Mitral Valve Normal mitral valve. Tricuspid Valve Normal tricuspid valve. Mild (1+) tricuspid valve insufficiency. Pulmonary artery systolic pressure is 38 mmHg. Aortic Valve Trisinus/trileaflet aortic valve. Normal aortic valve. Pulmonic Valve Normal pulmonic valve. Great Vessels Normal aortic root. The pulmonary artery is normal size. Normal inferior vena cava. Pericardium/Pleural No pericardial effusion. MMode/2D Measurements & Calculations LVIDd: 4.4 cm IVSd: 1.1 cm Ao root diam: 2.6 cm LVIDs: 2.7 cm LVPWd: 0.78 cm RVDd: 3.7 cm FS: 39.5 % LAV(MOD-bp): 48.4 ml LVAd ap4: 21.7 cm2 SV(MOD-sp4): 32.7 ml LAV(MOD-bp) Indexed: 28.0 ml/m2 LVLd ap4: 6.6 cm LAV(MOD-sp2): 54.7 ml EDV(MOD-sp4): 59.3 ml LAV(MOD-sp4): 43.5 ml EDV(sp4-el): 60.1 ml LVAs ap4: 13.0 cm2 LVLs ap4: 5.5 cm ESV(MOD-sp4): 26.7 ml ESV(sp4-el): 26.2 ml EF(MOD-sp4): 55.1 % EF(sp4-el): 56.4 % SV(sp4-el): 33.9 ml LA A4 area: 16.9 cm2 LA dimension(2D): 4.5 cm RA A4 area: 16.7 cm2 Doppler Measurements & Calculations MV E max juice: 43.8 cm/sec Lat Peak E' Juice: 6.9 cm/sec Med Peak E' Juice: 5.4 cm/sec MV A max juice: 95.1 cm/sec E/E' lat: 6.3 E/E' med: 8.1 MV E/A: 0.46 Ao V2 max: 138.9 cm/sec LV V1 max: 98.1 cm/sec PA V2 max: 115.2 cm/sec Ao max P.7 mmHg LV V1 max P.9 mmHg Ao V2 mean: 97.6 cm/sec Ao mean P.2 mmHg Ao V2 VTI: 27.8 cm TR max juice: 287.6 cm/sec TR max P.1 mmHg ECHO/Echo Complete Interpretation Summary Normal LV size. Left ventricular systolic function is normal. The estimated ejection fraction is 55 %. D shaped septum in diastole. Pulmonary artery systolic pressure is 38 mmHg. Stage 1 diastolic dysfunction. Ordering Physician: Bailey Baca Referring Physician: Nhi Kirby Performed By: Samantha Montesinos, DENEEN, RVT
[2022-02-26 12:51] LABS: Troponin-I HS 1628 pg/mL (3.0-54.0)
[2022-02-26 17:34] LABS: Partial Thromboplast Time 136.8 Seconds (24.1-36.2)
[2022-02-26 17:48] LABS: Troponin-I HS 1671 pg/mL (3.0-54.0)
[2022-02-27] VITALS (18 sets, daily range): BP systolic 125–155; BP diastolic 63–89; PULSE 73–90; RESP 14–25; TEMP 36.6–36.9; O2SAT 94–98
[2022-02-27 01:39] LABS: Partial Thromboplast Time 47.7 Seconds (24.1-36.2)
[2022-02-27] MEDS: Heparin Injection (Vial) 5,000 UNIT/ML VIAL IV ×2 (01:51→16:58)
[2022-02-27 05:18] LABS: Absolute Lymphocyte Count 1.32 X10^3/uL (0.83-4.51); Absolute Neutrophil Count 3.4 X10^3/uL (2.0-7.7); Basophil# 0.05 X10^3/uL; Basophil% 0.9 % (0-1); Eosinophil# 0.17 X10^3/uL; Eosinophils% 3.1 % (0-5); Hematocrit 39.2 % (37-47); Hemoglobin 12.6 g/dL (12.0-15.0); Lymphocyte # 1.32 X10^3/ul (0.83-4.51); Lymphocyte % 24.3 % (19-41); Mean Corp Hgb Conc 32.1 g/dL (32-36); Mean Corpuscular Hgb 29.7 pg (27.0-32.0); Mean Corpuscular Volume 92.5 fL (81-99); Mean Platelet Vol. 9.8 fl (6.2-12.0); Monocyte# 0.45 X10^3/uL; Monocyte% 8.3 % (0-10); NRBC Flagged by Analyzer 0 % (0-5); Neutrophil # 3.42 X10^3/uL (2.7-7.7); Neutrophil % 62.8 % (47-70); Platelet Count 157 K/mm3 (150-450); RBC Distribution Width CV 14.1 % (11.6-14.6); RBC Distribution Width SD 47.8 fl (35.1-43.9); Red Blood Count 4.24 M/mm3 (4.2-5.4); White Blood Count 5.4 K/mm3 (4.4-11.0)
[2022-02-27 05:36] LABS: Anion Gap 6 (5-15); BUN 19 mg/dL (7-18); BUN/Creat Ratio 31.2 RATIO (10-20); Calcium,Total 8.5 mg/dL (8.5-10.1); Chloride 111 mmol/L (98-107); Creatinine, Serum 0.61 mg/dL (0.55-1.02); EST Glomerular Filtration Rate 100 mL/min (>60); Est Glom Filt Rate - Afr Amer 121 mL/min (>60); Estimated Creatinine Clearance 35.88 ml/min; Glucose 119 mg/dL (74-106); Potassium 3.2 mmol/L (3.5-5.1); Sodium Level 144 mmol/L (136-145)
--- NOTE | 2022-02-27 07:12 | CON.PCM.CC_ITS ---
Assessment & Plan Assessment/Plan (1) Bilateral pulmonary embolism: (2) Elevated troponin: (3) Calculus, ureteral: PLAN: RECOMMENDATIONS: 1. Initiate Coumadin for lifelong anticoagulation 2. Obtain echocardiogram for right heart strain 3. Walking oximetry prior to discharge 4. Replete potassium 5. Given relatively good response, will sign off from a pulmonary perspective. Patient can follow-up as an outpatient if requested IMPRESSIONS: 1. Acute hypoxic respiratory insufficiency secondary to submassive PE Given age, likely not necessary to do a secondary thrombophilia work-up. However, patient has had multiple clots and therefore would be recommended to have anticoagulation. Unfortunately, patient tolerated 10 A inhibitors in the past. This would leave Coumadin as an alternative. Given the size and burden of clot, lifelong anticoagulation would be recommended, especially given her full CODE STATUS. Patient has had no bleeding complications with heparin and Coumadin will take some time to become therapeutic, so would start now. Patient does have an echocardiogram scheduled, but elevated troponin and BNP is suggestive significant heart strain. Clinical suspicion patient is tolerating such a burden so well given that she has no history of pulmonary insults. Personal review of the CT scan does not show extensive fibrotic burden despite radiology report. Anticipate normal PFTs 2. 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 These can be continued, but will increase Coumadin sensitivity. Patient does not have any significant hematuria at this time. No indication for an extended antibiotic course. 3. History of A. fib/advanced age/nonsustained VT Complicates care, management, recovery and prognosis. Clinical suspicion for arrhythmia secondary to atrial dilation as these have been associated with previous clots. Patient would benefit from anticoagulation from an A. fib standpoint also. HPI Consult Data Date of Consult: 02/27/22 HPI Narrative HPI Narrative: REBECA FINLEY is an 81 F, with past medical history listed below, who presents to [facility] on 02/26/2022 secondary to acute onset of shortness of breath on exertion that started today. Over the previous 2 weeks, patient has had multiple interventions secondary to a renal colliculi and infection. Patient reportedly was of her usual health on the day prior to presentation, but then woke up very short of breath and came in for an evaluat ion. Patient denied any previous fever, chills, nausea or vomiting. No cough or sick exposures have been reported. Patient does have a history of A. fib and DVT, but is not on anticoagulation secondary to allergies to Eliquis and Xarelto. In the ER, patient was afebrile, but tachycardic at 114 bpm. Patient also noted to be hypertensive at 175/107, but saturating well on room air. Laboratory data showed a white blood cell count of 5.2, hemoglobin of 14.3 and a potassium of 3.3. Troponin was elevated at 609 and BNP was elevated at 121.8. Given history, there was significant concern for PE, so a CTA was obtained. This did demonstrate extensive pulmonary emboli bilaterally with minimal pulmonary fibrosis and a calcified granuloma of the left lower lobe. EKG confirmed sinus tachycardia. Patient was placed on heparin and admitted to the intensive care unit for closer monitoring. Since being in the intensive care unit, patient has done well. Patient has had no complications of anticoagulation including epistaxis, hemoptysis, melena or hematochezia. Patient states that her respiratory effort has gone back to normal at rest. Patient is not reporting any chest pressure at this time. Nursing did report patient desaturated into the upper 80s with ambulation to the bathroom. Patient states that she did get treated for 3 months for her previous DVT, but has had significant issues with a burning sensation with previous 10 a inhibitors. Patient did state that her previous clotting issues have been around surgical events. Review of systems otherwise negative from a constitutional, HEENT, respiratory, cardiovascular, GI, genitourinary, musculoskeletal, skin, neurologic, psychiatric and hematologic system unless stated above. [facility] Medical History Atrial fibrillation with RVR History of DVT (deep vein thrombosis) Nonsustained ventricular tachycardia Pulmonary embolism, bilateral Home Medications hydrocodone-acetaminophen 1 tab PO Q4H PRN 3 Days #14 tab 01/19/22 [Rx Last Taken 01/20/22] aspirin 81 mg PO DAILY@0800 01/20/22 [History Last Taken 01/19/22] potassium chloride 20 meq PO DAILY 01/20/22 [History Last Taken 01/19/22] cephalexin 500 mg PO BID #10 cap 01/21/22 [Rx Last Taken Unknown] oxycodone-acetaminophen 1 tab PO Q6H PRN 7 Days #10 tab 01/21/22 [Rx Last Taken Unknown] Allergy/AdvReac Type Severity Reaction Status Date / Time acetaminophen [From Tylenol] Allergy Intermediate BP Verified 02/26/22 09:00 ELEVATION apixaban [From Eliquis] AdvReac visual Verified 02/26/22 09:00 disturbance rivaroxaban [From Xarelto] AdvReac burning Verified 02/26/22 09:00 sensation, hair loss Family History Mother Hypertension Surgical History History of appendectomy History of bilateral knee replacement History of hysterectomy (~1979) Social History adopted: No household members: spouse housing: house number of children: 0 pets and animals: Yes (1) pets and animals: dog(s) history of recent travel: No Smoking Status: Never smoker alcohol intake: never substance use type: does not use caffeine: Yes Type: coffee Number of servings: 2 what type of physical activity do you participate in: walking and other frequency: daily duration: 15-30 minutes/day seatbelt use: always do you feel safe at home: Yes ROS ROS Narrative See HPI Physical Exam Const alert, oriented x3 and no apparent distress General Appearance: cooperative HEENT normocephalic, head/scalp atraumatic, hearing grossly normal bilaterally and moist oral mucous membranes Eyes PERRL, EOMs intact bilaterally and conjunctivae normal Neck no lymphadenopathy, supple and no JVD Resp normal respiratory effort and normal air movement Auscultation: Negative for rales, rhonchi or wheezes Cardio regular rate, regular rhythm, S1 normal heart sound, S2 normal heart sound, no murmurs, no rub and no gallops GI normal to inspection, nondistended, normoactive bowel sounds, soft to palpation, non-tender and non-distended Extremity normal to inspection, full ROM and no clubbing, cyanosis or edema Peripheral Pulses: Yes pulses 2+ throughout Skin no rashes or lesions noted Neuro oriented x3, CN's II-XII intact bilaterally and moves all extremities Sensorium / Orientation: awake and alert Psych affect normal Lab / Micro Data Result Diagrams: 02/27/22 05:05 02/27/22 05:05 Labs: Laboratory Results - last 24 hr 02/26/22 09:30: WBC 5.2, RBC 4.82, Hgb 14.3, Hct 44.8, MCV 92.9, MCH 29.7, MCHC 31.9 L, RDW Std Deviation 46.3 H, RDW Coeff of Carloz 13.6, Plt Count 156, MPV 9.7, Immature Gran % (Auto) 0.400, Neut % (Auto) 74.7 H, Lymph % (Auto) 16.2 L, [place] % (Auto) 5.8, Eos % (Auto) 2.1, Baso % (Auto) 0.8, Absolute Neuts (auto) 3.9, Absolute Lymphs (auto) 0.84, Nucleated RBC % 0 02/26/22 09:30: Sodium 141, Potassium 3.3 L, Chloride 109 H, Carbon Dioxide 27.0, Anion Gap 5, BUN 18, Creatinine 0.73, Estim Creat Clear Calc 35.88, Est GFR (MDRD) Af Amer 97, Est GFR (MDRD) Non-Af 81, BUN/Creatinine Ratio 24.5 H, Glucose 139 H, Calcium 8.8, Troponin I High Sens 609 H* 02/26/22 09:30: B-Natriuretic Peptide 121.8 H 02/26/22 09:50: PT 13.3, INR 1.0, APTT 30.6 02/26/22 12:15: Troponin I High Sens 1628 H* 02/26/22 17:05: Troponin I High Sens 1671 H* 02/26/22 17:05: APTT 136.8 H* 02/27/22 01:15: APTT 47.7 H 02/27/22 05:05: Sodium 144, Potassium 3.2 L, Chloride 111 H, Carbon Dioxide 27.0, Anion Gap 6, BUN 19 H, Creatinine 0.61, Estim Creat Clear Calc 35.88, Est GFR (MDRD) Af Amer 121, Est GFR (MDRD) Non-Af 100, BUN/Creatinine Ratio 31.2 H, Glucose 119 H, Calcium 8.5 02/27/22 05:05: WBC 5.4, RBC 4.24, Hgb 12.6, Hct 39.2, MCV 92.5, MCH 29.7, MCHC 32.1, RDW Std Deviation 47.8 H, RDW Coeff of Carloz 14.1, Plt Count 157, MPV 9.8, Immature Gran % (Auto) 0.600, Neut % (Auto) 62.8, Lymph % (Auto) 24.3, [place] % (Auto) 8.3, Eos % (Auto) 3.1, Baso % (Auto) 0.9, Absolute Neuts (auto) 3.4, Absolute Lymphs (auto) 1.32, Nucleated RBC % 0 Radiology Impression Chest CTA 02/26/22 09:15 IMPRESSION: Extensive pulmonary emboli throughout the main pulmonary artery, right pulmonary artery, left pulmonary artery and more peripheral pulmonary arterial branches detailed in body of report. Pulmonary fibrosis detailed above. Calcified granuloma left lower lobe. Simple cyst of the left kidney. Electronically Signed: Abraham Chairez MD, JD at 10:50 EDT , ADDENDUM: 02/26/22 1101 IMPRESSION: Extensive pulmonary emboli throughout the main pulmonary artery, right pulmonary artery, left pulmonary artery and more peripheral pulmonary arterial branches detailed in body of report. Pulmonary fibrosis detailed above. Calcified granuloma left lower lobe. Simple cyst of the left kidney. N.B. : The above Results were Read Back by Abraham Chairez MD, YUN to Javad Rg Dr, MD, and understanding confirmed on 02/26/2022 10:54:57 (ET). Electronically Signed: Abraham Chairez MD, JD at 10:50 EDT , ADDENDUM: 02/26/22 1103 IMPRESSION: undefined Charges/Coding Visit Charges Inpatient E&M: 19367 Init Hosp L2
[2022-02-27] MEDS: Aspirin 81 MG TAB.CHEW PO (08:16)
[2022-02-27] MEDS: Potassium Chloride Oral Tablet 20 MEQ PO (08:17)
--- NOTE | 2022-02-27 08:41 | PN.HOSP_ITS ---
Subjective Subjective Patient seen and examined. She felt much better today and had no active complaints. Her shortness of breath had resolved. She denied any chest pain, palpitations, dizziness, nausea or vomiting. Review of systems was otherwise negative. Objective Data Objective Data Vital Signs: Vital Signs Temp Pulse Resp BP Pulse Ox 98.2 F 76 24 H 146/79 H 94 02/27/22 05:00 02/27/22 08:00 02/27/22 07:00 02/27/22 07:00 02/27/22 07:00 Oxygen Flow Rate (L/min) 2 Oxygen Delivery Method Room Air Weight: 171 lb 8 oz Body Mass Index (BMI) 30.4 Intake & Output: Intake and Output for Last 24 Hours 02/25/22 02/26/22 02/27/22 23:59 23:59 23:59 Intake Total 160.33 / 360.33 344.33 / 344.33 Output Total 300 / 300 Balance 160.33 / 60.33 44.33 / 44.33 Lab / Micro Data Result Diagrams: 02/27/22 05:05 02/27/22 05:05 Labs: Laboratory Results - last 24 hr 02/26/22 09:30: WBC 5.2, RBC 4.82, Hgb 14.3, Hct 44.8, MCV 92.9, MCH 29.7, MCHC 31.9 L, RDW Std Deviation 46.3 H, RDW Coeff of Carloz 13.6, Plt Count 156, MPV 9.7, Immature Gran % (Auto) 0.400, Neut % (Auto) 74.7 H, Lymph % (Auto) 16.2 L, [place] % (Auto) 5.8, Eos % (Auto) 2.1, Baso % (Auto) 0.8, Absolute Neuts (auto) 3.9, Absolute Lymphs (auto) 0.84, Nucleated RBC % 0 02/26/22 09:30: Sodium 141, Potassium 3.3 L, Chloride 109 H, Carbon Dioxide 27.0, Anion Gap 5, BUN 18, Creatinine 0.73, Estim Creat Clear Calc 35.88, Est GFR (MDRD) Af Amer 97, Est GFR (MDRD) Non-Af 81, BUN/Creatinine Ratio 24.5 H, Glucose 139 H, Calcium 8.8, Troponin I High Sens 609 H* 02/26/22 09:30: B-Natriuretic Peptide 121.8 H 02/26/22 09:50: PT 13.3, INR 1.0, APTT 30.6 02/26/22 12:15: Troponin I High Sens 1628 H* 02/26/22 17:05: Troponin I High Sens 1671 H* 02/26/22 17:05: APTT 136.8 H* 02/27/22 01:15: APTT 47.7 H 02/27/22 05:05: Sodium 144, Potassium 3.2 L, Chloride 111 H, Carbon Dioxide 27.0, Anion Gap 6, BUN 19 H, Creatinine 0.61, Estim Creat Clear Calc 35.88, Est GFR (MDRD) Af Amer 121, Est GFR (MDRD) Non-Af 100, BUN/Creatinine Ratio 31.2 H, Glucose 119 H, Calcium 8.5 02/27/22 05:05: WBC 5.4, RBC 4.24, Hgb 12.6, Hct 39.2, MCV 92.5, MCH 29.7, MCHC 32.1, RDW Std Deviation 47.8 H, RDW Coeff of Carloz 14.1, Plt Count 157, MPV 9.8, Immature Gran % (Auto) 0.600, Neut % (Auto) 62.8, Lymph % (Auto) 24.3, [place] % (Auto) 8.3, Eos % (Auto) 3.1, Baso % (Auto) 0.9, Absolute Neuts (auto) 3.4, Absolute Lymphs (auto) 1.32, Nucleated RBC % 0 Radiography Diagnostic Testing: Radiology Impression Chest CTA 02/26/22 09:15 IMPRESSION: Extensive pulmonary emboli throughout the main pulmonary artery, right pulmonary artery, left pulmonary artery and more peripheral pulmonary arterial branches detailed in body of report. Pulmonary fibrosis detailed above. Calcified granuloma left lower lobe. Simple cyst of the left kidney. Electronically Signed: Abraham Chairez MD, YUN at 10:50 EDT , ADDENDUM: 02/26/22 1101 IMPRESSION: Extensive pulmonary emboli throughout the main pulmonary artery, right pulmonary artery, left pulmonary artery and more peripheral pulmonary arterial branches detailed in body of report. Pulmonary fibrosis detailed above. Calcified granuloma left lower lobe. Simple cyst of the left kidney. N.B. : The above Results were Read Back by Abraham Chairez MD, YUN to Javad Rg Dr, MD, and understanding confirmed on 02/26/2022 10:54:57 (ET). Electronically Signed: Abraham Chairez MD, JD at 10:50 EDT , ADDENDUM: 02/26/22 1103 IMPRESSION: undefined Physical Exam Const alert, oriented x3 and no apparent distress General Appearance: cooperative Exam Limitations: no limitations HEENT normocephalic, head/scalp atraumatic, hearing grossly normal bilaterally and moist oral mucous membranes Head and Scalp: normocephalic Eyes PERRL, EOMs intact bilaterally and conjunctivae normal Neck no lymphadenopathy, supple and no JVD Resp Resp Narrative: tachypneic, diminished breath sounds bibasally, no wheezes or crackles. Cardio regular rate, regular rhythm, S1 normal heart sound, S2 normal heart sound and no murmurs GI normal to inspection, nondistended, normoactive bowel sounds, soft to palpation, non-tender and non-distended Extremity normal to inspection, full ROM and no clubbing, cyanosis or edema Peripheral Pulses: Yes pulses 2+ throughout Skin no rashes or lesions noted Neuro oriented x3, CN's II-XII intact bilaterally and moves all extremities Sensorium / Orientation: awake and alert Psych affect normal Assessment & Plan Assessment/Plan (1) Pulmonary embolism, bilateral: PLAN: #Bilateral submassive PE * tachycardia and tachypnea have resolved * she feels much better * remains on heparin drip * 2D echo ordered and pending * titrate oxygen to maintain sats >90% * breathing treatment with bronchodilators * will continue heparin drip and start on coumadin * pulmonology on board * she was not able to tolerate eliquis or xarelto during her previous episode of PE, and says she is not willint to try them again due to the intractable itching she experienced whilst on it. Prefers to be started on coumadin. * will need anticoagulation for life * #Kidney stone s/p recent stent placement * this was complicated by infection. * on keflex, to complete the prescribed course. * #DVT prophylaxis: not indicated as she is on heparin drip Code status: full code * Charges/Coding Visit Charges Inpatient E&M: 59033 Subs Hosp L2
[2022-02-27 08:47] LABS: Partial Thromboplast Time 63.1 Seconds (24.1-36.2)
--- NOTE | 2022-02-27 11:04 | CON.PCM.CA_ITS ---
Assessment & Plan Assessment/Plan (1) History of DVT (deep vein thrombosis): (2) Atrial fibrillation with RVR: (3) Osteoarthritis: QUALIFIERS: Osteoarthritis location: multiple joints Osteoarthritis type: primary Qualified Code(s): M15.0 - Primary generalized (osteo)arthritis (4) Pulmonary embolism, bilateral: (5) Elevated troponin: PLAN: This 81-year-old patient who has extensive bilateral pulmonary emboli through the main pulmonary artery right and left pulmonary arteries and more peripheral pulmonary arterial branches currently patient has been on aspirin as well as on IV heparin Patient has a prior history of DVT, following a history of a knee surgery. History of allergies noted for Xarelto and Eliquis Cardiac consultation requested because of allergies of Eliquis and Xarelto elevated cardiac biomarker with elevated high sensitive troponin Patient has no prior cardiac history she does not have any active symptoms of chest pain. And her monitor technician and EKG showed underlying normal sinus with no significant ST?the abnormalities Also noted from medical record patient has a prior history of paroxysmal atrial fibrillation she remains in sinus rhythm on this admission. Cardiac care plan recommendations; 1. My clinical impression the elevated cardiac biomarker is secondary to bilateral extensive pulmonary PE 2. We will evaluate this patient by echocardiogram 3. She had been seen before by Dr. Baker and will continue to follow-up clinically with event monitor as she has a prior history of paroxysmal A. fib and to discuss long-term anticoagulation. 4. I discussed cardiac care plan with the family at bedside the patient and the nursing staff. Echocardiogram will be done tomorrow HPI Consult Data Date of Consult: 02/27/22 HPI Narrative Reason for Consultation: Patient with bilateral pulmonary emboli/Elevated high sensitive troponin HPI Narrative: REBECA FINLEY, is a 81 F who presents [facility] Medical History Atrial fibrillation with RVR History of DVT (deep vein thrombosis) Nonsustained ventricular tachycardia Pulmonary embolism, bilateral Home Medications hydrocodone-acetaminophen 1 tab PO Q4H PRN 3 Days #14 tab 01/19/22 [Rx Last Taken 01/20/22] aspirin 81 mg PO DAILY@0800 01/20/22 [History Last Taken 01/19/22] potassium chloride 20 meq PO DAILY 01/20/22 [History Last Taken 01/19/22] cephalexin 500 mg PO BID #10 cap 01/21/22 [Rx Last Taken Unknown] oxycodone-acetaminophen 1 tab PO Q6H PRN 7 Days #10 tab 01/21/22 [Rx Last Taken Unknown] Allergy/AdvReac Type Severity Reaction Status Date / Time acetaminophen [From Tylenol] Allergy Intermediate BP Verified 02/26/22 09:00 ELEVATION apixaban [From Eliquis] AdvReac visual Verified 02/26/22 09:00 disturbance rivaroxaban [From Xarelto] AdvReac burning Verified 02/26/22 09:00 sensation, hair loss Family History Mother Hypertension Surgical History History of appendectomy History of bilateral knee replacement History of hysterectomy (~1979) Social History adopted: No household members: spouse housing: house number of children: 0 pets and animals: Yes (1) pets and animals: dog(s) history of recent travel: No Smoking Status: Never smoker alcohol intake: never substance use type: does not use caffeine: Yes Type: coffee Number of servings: 2 what type of physical activity do you participate in: walking and other frequency: daily duration: 15-30 minutes/day seatbelt use: always do you feel safe at home: Yes Physical Exam Narrative Patient seen evaluated today at bedside along with the nursing staff in ICU Family at bedside Sitting out in a chair comfortable alert and orientated Not in acute distress No symptoms of chest pain laboratory monitor showed underlying normal sinus rhythm Cardiovascular exam S1-S2 regular, no murmur no systolic or diastolic murmur Chest exam is clear to auscultation bilateral. Examination lower extremity no clubbing no cyanosis no lower extremity edema Risk Stratification Risk Stratification Applicable: Yes Age >/= 65: Yes >/= 3 CAD Risk Factors (HTN, HLD, DM, family hx of CAD, or current smoker): No Aspirin Use in the Past 7 Days: Yes Severe Angina (>/= episodes in 24 hours): No EKG ST Changes >/= 0.5mm: No Positive Cardiac Marker: Yes MORENITA Risk Stratification Score: 3 MORENITA % Risk: 13% Risk Objective Data Vital Signs: Vital Signs Temp Pulse Resp BP Pulse Ox 98.2 F 77 23 H 134/63 H 97 02/27/22 08:00 02/27/22 10:00 02/27/22 10:00 02/27/22 10:00 02/27/22 10:00 Oxygen Flow Rate (L/min) 2 Oxygen Delivery Method Room Air Weight: 171 lb 8 oz Body Mass Index (BMI) 30.4 Intake & Output: Intake and Output for Last 24 Hours 02/25/22 02/26/22 02/27/22 23:59 23:59 23:59 Intake Total 160.33 / 360.33 344.33 / 344.33 Output Total 300 / 300 Balance 160.33 / 60.33 44.33 / 44.33 Lab / Micro Data Result Diagrams: 02/27/22 05:05 02/27/22 05:05 Labs: Laboratory Results - last 24 hr 02/26/22 09:50: PT 13.3, INR 1.0, APTT 30.6 02/26/22 12:15: Troponin I High Sens 1628 H* 02/26/22 17:05: Troponin I High Sens 1671 H* 02/26/22 17:05: APTT 136.8 H* 02/27/22 01:15: APTT 47.7 H 02/27/22 05:05: Sodium 144, Potassium 3.2 L, Chloride 111 H, Carbon Dioxide 27.0, Anion Gap 6, BUN 19 H, Creatinine 0.61, Estim Creat Clear Calc 35.88, Est GFR (MDRD) Af Amer 121, Est GFR (MDRD) Non-Af 100, BUN/Creatinine Ratio 31.2 H, Glucose 119 H, Calcium 8.5 02/27/22 05:05: WBC 5.4, RBC 4.24, Hgb 12.6, Hct 39.2, MCV 92.5, MCH 29.7, MCHC 32.1, RDW Std Deviation 47.8 H, RDW Coeff of Carloz 14.1, Plt Count 157, MPV 9.8, Immature Gran % (Auto) 0.600, Neut % (Auto) 62.8, Lymph % (Auto) 24.3, [place] % (Auto) 8.3, Eos % (Auto) 3.1, Baso % (Auto) 0.9, Absolute Neuts (auto) 3.4, Absolute Lymphs (auto) 1.32, Nucleated RBC % 0 02/27/22 08:12: APTT 63.1 H Cardiology Labs/Tests 02/26/22 09:50: PT 13.3, INR 1.0, APTT 30.6 02/26/22 17:05: APTT 136.8 H* 02/27/22 01:15: APTT 47.7 H 02/27/22 05:05: Sodium 144, Potassium 3.2 L, Chloride 111 H, Carbon Dioxide 27.0, Anion Gap 6, BUN 19 H, Creatinine 0.61, Est GFR (MDRD) Af Amer 121, Est GFR (MDRD) Non-Af 100, BUN/Creatinine Ratio 31.2 H, Glucose 119 H, Calcium 8.5 02/27/22 05:05: WBC 5.4, RBC 4.24, Hgb 12.6, Hct 39.2, MCV 92.5, MCH 29.7, MCHC 32.1, Plt Count 157, MPV 9.8, Immature Gran % (Auto) 0.600, Neut % (Auto) 62.8, Lymph % (Auto) 24.3, [place] % (Auto) 8.3, Eos % (Auto) 3.1, Baso % (Auto) 0.9, Absolute Neuts (auto) 3.4, Nucleated RBC % 0 02/27/22 08:12: APTT 63.1 H Rhythm: Normal sinus rhythm
[2022-02-27 16:24] LABS: Partial Thromboplast Time 47.6 Seconds (24.1-36.2)
[2022-02-27 16:37] LABS: International Normalized Ratio 1.1; Prothrombin Time (Protime)PT. 13.4 SECONDS (11.7-14.9)
[2022-02-27] MEDS: Potassium Chloride Oral Tablet 20 MEQ 40 MEQ PO (16:58)
[2022-02-27] MEDS: HEPARIN/D5w 25,000 UNITS 25,000 UNITS/250 ML IV.SOLN. 9 UNITS CONT INF (20:28)
[2022-02-27 23:19] LABS: Partial Thromboplast Time 68.6 Seconds (24.1-36.2)
[2022-02-28] VITALS (10 sets, daily range): BP systolic 141–152; BP diastolic 81–87; PULSE 71–79; RESP 14–18; TEMP 36.6–36.7; O2SAT 92–97
[2022-02-28 05:21] LABS: Absolute Lymphocyte Count 1.32 X10^3/uL (0.83-4.51); Basophil# 0.05 X10^3/uL; Eosinophil# 0.19 X10^3/uL; Eosinophils% 3.7 % (0-5); Hematocrit 40.2 % (37-47); Hemoglobin 12.7 g/dL (12.0-15.0); Lymphocyte # 1.32 X10^3/ul (0.83-4.51); Lymphocyte % 25.8 % (19-41); Mean Corp Hgb Conc 31.6 g/dL (32-36); Mean Corpuscular Hgb 29.1 pg (27.0-32.0); Mean Corpuscular Volume 92.2 fL (81-99); Mean Platelet Vol. 10.4 fl (6.2-12.0); Monocyte# 0.48 X10^3/uL; Monocyte% 9.4 % (0-10); NRBC Flagged by Analyzer 0 % (0-5); Neutrophil # 3.04 X10^3/uL (2.7-7.7); Neutrophil % 59.5 % (47-70); Platelet Count 162 K/mm3 (150-450); RBC Distribution Width CV 14.2 % (11.6-14.6); RBC Distribution Width SD 48.1 fl (35.1-43.9); Red Blood Count 4.36 M/mm3 (4.2-5.4); White Blood Count 5.1 K/mm3 (4.4-11.0)
[2022-02-28 05:42] LABS: Partial Thromboplast Time 70.5 Seconds (24.1-36.2)
[2022-02-28 05:46] LABS: Anion Gap 7 (5-15); BUN 22 mg/dL (7-18); BUN/Creat Ratio 38.9 RATIO (10-20); Calcium,Total 8.2 mg/dL (8.5-10.1); Chloride 112 mmol/L (98-107); Creatinine, Serum 0.57 mg/dL (0.55-1.02); EST Glomerular Filtration Rate 109 mL/min (>60); Est Glom Filt Rate - Afr Amer 131 mL/min (>60); Estimated Creatinine Clearance 35.88 ml/min; Glucose 115 mg/dL (74-106); Sodium Level 143 mmol/L (136-145)
[2022-02-28 05:49] LABS: International Normalized Ratio 1.1; Prothrombin Time (Protime)PT. 13.9 SECONDS (11.7-14.9)
[2022-02-28] MEDS: Aspirin 81 MG TAB.CHEW PO (07:35)
[2022-02-28] MEDS: Potassium Chloride Oral Tablet 20 MEQ PO (07:39)
--- NOTE | 2022-02-28 10:24 | PN.HOSP_ITS ---
Subjective Subjective Patient seen and examined. She had no active complaints and had an uneventful night. Review of systems otherwise negative. INR is 1.1 today. She was started on Coumadin yesterday. Objective Data Objective Data Vital Signs: Vital Signs Temp Pulse Resp BP Pulse Ox 98 F 76 14 143/87 H 94 02/28/22 07:40 02/28/22 07:40 02/28/22 07:40 02/28/22 07:40 02/28/22 07:40 Oxygen Flow Rate (L/min) 2 Oxygen Delivery Method Room Air Weight: 171 lb 4.787 oz Body Mass Index (BMI) 30.4 Intake & Output: Intake and Output for Last 24 Hours 02/26/22 02/27/22 02/28/22 23:59 23:59 23:59 Intake Total 160.33 / 360.33 1279.67 / 1279.67 Output Total 300 / 300 Balance 160.33 / 60.33 979.67 / 979.67 Lab / Micro Data Result Diagrams: 02/28/22 04:41 02/28/22 04:41 Labs: Laboratory Results - last 24 hr 02/27/22 16:02: APTT 47.6 H 02/27/22 16:02: PT 13.4, INR 1.1 02/27/22 22:30: APTT 68.6 H 02/28/22 04:41: Sodium 143, Potassium 4.0, Chloride 112 H, Carbon Dioxide 24.0, Anion Gap 7, BUN 22 H, Creatinine 0.57, Estim Creat Clear Calc 35.88, Est GFR (MDRD) Af Amer 131, Est GFR (MDRD) Non-Af 109, BUN/Creatinine Ratio 38.9 H, Glucose 115 H, Calcium 8.2 L 02/28/22 04:41: WBC 5.1, RBC 4.36, Hgb 12.7, Hct 40.2, MCV 92.2, MCH 29.1, MCHC 31.6 L, RDW Std Deviation 48.1 H, RDW Coeff of Carloz 14.2, Plt Count 162, MPV 10.4, Immature Gran % (Auto) 0.600, Neut % (Auto) 59.5, Lymph % (Auto) 25.8, [place] % (Auto) 9.4, Eos % (Auto) 3.7, Baso % (Auto) 1.0, Absolute Neuts (auto) 3.0, Absolute Lymphs (auto) 1.32, Nucleated RBC % 0 02/28/22 04:41: PT 13.9, INR 1.1 02/28/22 04:41: APTT 70.5 H Physical Exam Const alert, oriented x3 and no apparent distress General Appearance: cooperative Exam Limitations: no limitations HEENT normocephalic, head/scalp atraumatic, hearing grossly normal bilaterally and moist oral mucous membranes Head and Scalp: normocephalic Eyes PERRL, EOMs intact bilaterally and conjunctivae normal Neck no lymphadenopathy, supple and no JVD Resp Resp Narrative: tachypneic, diminished breath sounds bibasally, no wheezes or crackles. Cardio regular rate, regular rhythm, S1 normal heart sound, S2 normal heart sound and no murmurs Cardio Narrative: tachycardic GI normal to inspection, nondistended, normoactive bowel sounds, soft to palpation, non-tender and non-distended Extremity normal to inspection, full ROM and no clubbing, cyanosis or edema Peripheral Pulses: Yes pulses 2+ throughout Skin no rashes or lesions noted Neuro oriented x3, CN's II-XII intact bilaterally and moves all extremities Sensorium / Orientation: awake and alert Psych affect normal Assessment & Plan Assessment/Plan (1) Pulmonary embolism, bilateral: PLAN: #Bilateral submassive PE * started on coumadin yesterday * INR toaey is 1.1 * will dc heparin drip and bridge with therapeutic lovenox * 2D echo ordered and pending * titrate oxygen to maintain sats >90% * breathing treatment with bronchodilators * she was not able to tolerate eliquis or xarelto during her previous episode of PE, and says she is not willint to try them again due to the intractable itching she experienced whilst on it. Prefers to be on coumadin. * will need anticoagulation for life * #Kidney stone s/p recent stent placement * this was complicated by infection. * on keflex, to complete the prescribed course. * #DVT prophylaxis: not indicated as she is being treated for bilateral PE Code status: full code * Charges/Coding Visit Charges Inpatient E&M: 20930 Subs Hosp L2
--- NOTE | 2022-02-28 10:36 | PN.CARD_ITS ---
Subjective Subjective Patient seen and evaluated. Appears to be doing well this morning. Objective Data Vital Signs: Vital Signs Temp Pulse Resp BP Pulse Ox 98 F 76 14 143/87 H 94 02/28/22 07:40 02/28/22 07:40 02/28/22 07:40 02/28/22 07:40 02/28/22 07:40 Oxygen Flow Rate (L/min) 2 Oxygen Delivery Method Room Air Weight: 171 lb 4.787 oz Body Mass Index (BMI) 30.4 Intake & Output: Intake and Output for Last 24 Hours 02/26/22 02/27/22 02/28/22 23:59 23:59 23:59 Intake Total 160.33 / 360.33 1279.67 / 1279.67 Output Total 300 / 300 Balance 160.33 / 60.33 979.67 / 979.67 Lab / Micro Data Result Diagrams: 02/28/22 04:41 02/28/22 04:41 Labs: Laboratory Results - last 24 hr 02/27/22 16:02: APTT 47.6 H 02/27/22 16:02: PT 13.4, INR 1.1 02/27/22 22:30: APTT 68.6 H 02/28/22 04:41: Sodium 143, Potassium 4.0, Chloride 112 H, Carbon Dioxide 24.0, Anion Gap 7, BUN 22 H, Creatinine 0.57, Estim Creat Clear Calc 35.88, Est GFR (MDRD) Af Amer 131, Est GFR (MDRD) Non-Af 109, BUN/Creatinine Ratio 38.9 H, Glucose 115 H, Calcium 8.2 L 02/28/22 04:41: WBC 5.1, RBC 4.36, Hgb 12.7, Hct 40.2, MCV 92.2, MCH 29.1, MCHC 31.6 L, RDW Std Deviation 48.1 H, RDW Coeff of Carloz 14.2, Plt Count 162, MPV 10.4, Immature Gran % (Auto) 0.600, Neut % (Auto) 59.5, Lymph % (Auto) 25.8, [place] % (Auto) 9.4, Eos % (Auto) 3.7, Baso % (Auto) 1.0, Absolute Neuts (auto) 3.0, Absolute Lymphs (auto) 1.32, Nucleated RBC % 0 05/30/22 04:41: PT 13.9, INR 1.1 02/28/22 04:41: APTT 70.5 H Cardiology Labs/Tests 02/27/22 16:02: APTT 47.6 H 02/27/22 16:02: PT 13.4, INR 1.1 02/27/22 22:30: APTT 68.6 H 02/28/22 04:41: Sodium 143, Potassium 4.0, Chloride 112 H, Carbon Dioxide 24.0, Anion Gap 7, BUN 22 H, Creatinine 0.57, Est GFR (MDRD) Af Amer 131, Est GFR (MDRD) Non-Af 109, BUN/Creatinine Ratio 38.9 H, Glucose 115 H, Calcium 8.2 L 02/28/22 04:41: WBC 5.1, RBC 4.36, Hgb 12.7, Hct 40.2, MCV 92.2, MCH 29.1, MCHC 31.6 L, Plt Count 162, MPV 10.4, Immature Gran % (Auto) 0.600, Neut % (Auto) 59.5, Lymph % (Auto) 25.8, [place] % (Auto) 9.4, Eos % (Auto) 3.7, Baso % (Auto) 1.0, Absolute Neuts (auto) 3.0, Nucleated RBC % 0 02/28/22 04:41: PT 13.9, INR 1.1 02/28/22 04:41: APTT 70.5 H Rhythm: EKG: ECHO: Stress Test: Cardiac Cath: PCI: CT Surgery: Holter monitor: EPS: PPM: CXR: Chest CT Scan: Radiography Diagnostic Testing: Radiology Impression Echocardiogram 02/26/22 12:04 Interpretation Summary Normal LV size. Left ventricular systolic function is normal. The estimated ejection fraction is 55 %. D shaped septum in diastole. Pulmonary artery systolic pressure is 38 mmHg. Stage 1 diastolic dysfunction. Ordering Physician: Bailey Baca Referring Physician: Nhi Kirby Performed By: Samantha Montesinos RDCS, RVT Physical Exam Const alert, oriented x3 and no apparent distress General Appearance: cooperative HEENT hearing grossly normal bilaterally Head and Scalp: atraumatic Eyes EOMs intact bilaterally Neck General: normal visual inspection Chest inspection of chest normal and palpation of chest normal Resp normal respiratory effort Auscultation: clear to auscultation bilaterally Cardio regular rate, regular rhythm, S1 normal heart sound and S2 normal heart sound Jugular Venous Distention: JVD GI normal to inspection, nondistended, normoactive bowel sounds Extremity normal capillary refill and no pedal edema Peripheral Pulses: Yes pulses 2+ throughout and femoral pulses present Skin no rashes or lesions noted Neuro oriented x3 and CN's II-XII intact bilaterally Psych Appearance: grossly normal and appropriate Assessment & Plan Assessment/Plan (1) Bilateral pulmonary embolism: PLAN: Patient with recent bilateral pulmonary embolism. Echocardiogram demonstrates preserved ejection fraction. Minimally elevated right ventricular pressures but there is evidence of D-shaped in diastole. Would recommend continue anticoagulation as you are doing Patient appears not to require any additional oxygen requirements The elevation in the troponin is likely secondary to the right ventricular strain and the extent of the pulmonary embolism. No reason to further evaluate coronary anatomy. (2) Atrial fibrillation with RVR: PLAN: Patient appears to be in sinus rhythm at this time I would not make any change with respect to the above. Thank you for allowing me to participate in the care of your patient. Please don't hesitate to call if any issues arise.
[2022-02-28] MEDS: Enoxaparin 80 MG/0.8 ML Syringe SC ×2 (11:40→21:42)
[2022-02-28] MEDS: 0.9% Saline Lock 10 ML Syringe IV ×2 (11:40→21:42)
[2022-03-01] VITALS (11 sets, daily range): BP systolic 154–185; BP diastolic 73–84; PULSE 67–96; RESP 16–18; TEMP 36.6–36.9; O2SAT 95–100
[2022-03-01 04:35] LABS: Absolute Lymphocyte Count 1.28 X10^3/uL (0.83-4.51); Absolute Neutrophil Count 3.2 X10^3/uL (2.0-7.7); Basophil# 0.05 X10^3/uL; Eosinophil# 0.21 X10^3/uL; Hematocrit 39.4 % (37-47); Hemoglobin 12.7 g/dL (12.0-15.0); Lymphocyte # 1.28 X10^3/ul (0.83-4.51); Lymphocyte % 24.6 % (19-41); Mean Corp Hgb Conc 32.2 g/dL (32-36); Mean Corpuscular Hgb 29.6 pg (27.0-32.0); Mean Corpuscular Volume 91.8 fL (81-99); Mean Platelet Vol. 10.2 fl (6.2-12.0); Monocyte# 0.49 X10^3/uL; Monocyte% 9.4 % (0-10); NRBC Flagged by Analyzer 0 % (0-5); Neutrophil # 3.15 X10^3/uL (2.7-7.7); Neutrophil % 60.4 % (47-70); Platelet Count 172 K/mm3 (150-450); RBC Distribution Width CV 14.4 % (11.6-14.6); RBC Distribution Width SD 48.3 fl (35.1-43.9); Red Blood Count 4.29 M/mm3 (4.2-5.4); White Blood Count 5.2 K/mm3 (4.4-11.0)
[2022-03-01 04:49] LABS: International Normalized Ratio 1.8; Prothrombin Time (Protime)PT. 20.7 SECONDS (11.7-14.9)
[2022-03-01 04:56] LABS: Anion Gap 6 (5-15); BUN 25 mg/dL (7-18); BUN/Creat Ratio 41.1 RATIO (10-20); Calcium,Total 8.8 mg/dL (8.5-10.1); Chloride 111 mmol/L (98-107); Creatinine, Serum 0.61 mg/dL (0.55-1.02); EST Glomerular Filtration Rate 100 mL/min (>60); Est Glom Filt Rate - Afr Amer 121 mL/min (>60); Estimated Creatinine Clearance 35.88 ml/min; Glucose 116 mg/dL (74-106); Potassium 4.1 mmol/L (3.5-5.1); Sodium Level 140 mmol/L (136-145)
[2022-03-01] MEDS: Aspirin 81 MG TAB.CHEW PO (07:49)
[2022-03-01] MEDS: Potassium Chloride Oral Tablet 20 MEQ PO (07:49)
[2022-03-01] MEDS: Enoxaparin 80 MG/0.8 ML Syringe SC (09:37)
--- NOTE | 2022-03-01 09:40 | CASEMGMT ---
RN CM Face to Face with patient for initial transition planning/care coordination assessment. RN CM introduced self and role at [facility]. Patient sitting in chair, alert and oriented. Patient willing to participate in assessment and is able to answer all questions appropriately. Care providers, pharmacy, and demographics verified. Patient wishes to discharge home, denies need for home health at this time. Patient states she has no further needs or concerns at this time. CM to follow for discharge planning needs that may arise. PCP: Kofi Specialists: none Preferred Pharmacy: [facility] Insurance: [employer] Prescription Benefit: yes Living Will/HPOA: yes, Brooks Sherman LNOK: Living Arrangements: Patient lives with in a 2 story home with bed and bath on first floor. 2 steps and railing to enter the home. Patient states she is independent at home. Transportation: self, DME/HHC: Patient states she has walker and grab bars at home. Patient has previously been to [facility]. No previous [facility] Disposition Plan: Patient to discharge home with family support and follow-up plans in place. Martina MARTINO, RN, CM
--- NOTE | 2022-03-01 10:27 | PN.HOSP_ITS ---
Subjective Subjective Patient seen and examined. She had no complaints and had an uneventful night. She feels well. Review of systems otherwise negative. Objective Data Objective Data Vital Signs: Vital Signs Temp Pulse Resp BP Pulse Ox 97.8 F 77 16 158/73 H 98 03/01/22 09:35 03/01/22 09:35 03/01/22 09:35 03/01/22 09:35 03/01/22 09:35 Oxygen Flow Rate (L/min) 2 Oxygen Delivery Method Room Air Weight: 170 lb 6.677 oz Body Mass Index (BMI) 30.4 Intake & Output: Intake and Output for Last 24 Hours 02/27/22 02/28/22 03/01/22 23:59 23:59 23:59 Intake Total 1279.67 / 1279.67 1116.8 / 1116.8 0 / 0 Output Total 300 / 300 Balance 979.67 / 979.67 1116.8 / 1116.8 0 / 0 Lab / Micro Data Result Diagrams: 03/01/22 04:16 03/01/22 04:16 Labs: Laboratory Results - last 24 hr 03/01/22 04:16: Sodium 140, Potassium 4.1, Chloride 111 H, Carbon Dioxide 23.0, Anion Gap 6, BUN 25 H, Creatinine 0.61, Estim Creat Clear Calc 35.88, Est GFR (MDRD) Af Amer 121, Est GFR (MDRD) Non-Af 100, BUN/Creatinine Ratio 41.1 H, Glucose 116 H, Calcium 8.8 03/01/22 04:16: WBC 5.2, RBC 4.29, Hgb 12.7, Hct 39.4, MCV 91.8, MCH 29.6, MCHC 32.2, RDW Std Deviation 48.3 H, RDW Coeff of Carloz 14.4, Plt Count 172, MPV 10.2, Immature Gran % (Auto) 0.600, Neut % (Auto) 60.4, Lymph % (Auto) 24.6, [place] % (Auto) 9.4, Eos % (Auto) 4.0, Baso % (Auto) 1.0, Absolute Neuts (auto) 3.2, Absolute Lymphs (auto) 1.28, Nucleated RBC % 0 03/01/22 04:16: PT 20.7 H, INR 1.8 Radiography Diagnostic Testing: Radiology Impression Echocardiogram 02/26/22 12:04 Interpretation Summary Normal LV size. Left ventricular systolic function is normal. The estimated ejection fraction is 55 %. D shaped septum in diastole. Pulmonary artery systolic pressure is 38 mmHg. Stage 1 diastolic dysfunction. Ordering Physician: Bailey Baca Referring Physician: Nhi Kirby Performed By: Samantha Montesinos, DENEEN, RVT Physical Exam Const alert, oriented x3 and no apparent distress General Appearance: cooperative Exam Limitations: no limitations HEENT normocephalic, head/scalp atraumatic, hearing grossly normal bilaterally and moist oral mucous membranes Head and Scalp: normocephalic Eyes PERRL, EOMs intact bilaterally and conjunctivae normal Neck no lymphadenopathy, supple and no JVD Resp normal respiratory effort, no retractions, no use of accessory muscles and clear to auscultation bilaterally Cardio regular rate, regular rhythm, S1 normal heart sound, S2 normal heart sound and no murmurs GI normal to inspection, nondistended, normoactive bowel sounds, soft to palpation, non-tender and non-distended Extremity normal to inspection, full ROM and no clubbing, cyanosis or edema Peripheral Pulses: Yes pulses 2+ throughout Skin no rashes or lesions noted Neuro oriented x3, CN's II-XII intact bilaterally and moves all extremities Sensorium / Orientation: awake and alert Psych affect normal Assessment & Plan Assessment/Plan (1) Pulmonary embolism, bilateral: PLAN: #Bilateral submassive PE * started on coumadin yesterday * INR today is 1.8 * will give 10mg of coumadin again today. * continue bridging with lovenox * 2D echo: Normal LV size and systolic function with EF of 55% and PA pressure of 38mmhg; stage I diastolic dysfunction * titrate oxygen to maintain sats >90% * breathing treatment with bronchodilators * she was not able to tolerate eliquis or xarelto during her previous episode of PE, and says she is not willint to try them again due to the intractable i tching she experienced whilst on it. Prefers to be on coumadin. * will need anticoagulation for life * #Kidney stone s/p recent stent placement * this was complicated by infection. * on keflex, to complete the prescribed course. * #DVT prophylaxis: not indicated as she is being treated for bilateral PE Code status: full code * * Disposition; anticipate dc home tomorrow if INR is therapeutic. Charges/Coding Visit Charges Inpatient E&M: 48031 Subs Hosp L2
[2022-03-01 19:12] LABS: Absolute Lymphocyte Count 1.26 X10^3/uL (0.83-4.51); Absolute Neutrophil Count 4.9 X10^3/uL (2.0-7.7); Basophil# 0.06 X10^3/uL; Basophil% 0.9 % (0-1); Eosinophil# 0.13 X10^3/uL; Eosinophils% 1.9 % (0-5); Hematocrit 45.4 % (37-47); Hemoglobin 14.5 g/dL (12.0-15.0); Lymphocyte # 1.26 X10^3/ul (0.83-4.51); Lymphocyte % 18.1 % (19-41); Mean Corp Hgb Conc 31.9 g/dL (32-36); Mean Corpuscular Hgb 29.8 pg (27.0-32.0); Mean Corpuscular Volume 93.4 fL (81-99); Mean Platelet Vol. 10.1 fl (6.2-12.0); Monocyte# 0.55 X10^3/uL; Monocyte% 7.9 % (0-10); NRBC Flagged by Analyzer 0 % (0-5); Neutrophil # 4.92 X10^3/uL (2.7-7.7); Neutrophil % 70.6 % (47-70); Platelet Count 186 K/mm3 (150-450); RBC Distribution Width CV 14.2 % (11.6-14.6); RBC Distribution Width SD 48.7 fl (35.1-43.9); Red Blood Count 4.86 M/mm3 (4.2-5.4)
[2022-03-01 19:22] LABS: International Normalized Ratio 2.3; Prothrombin Time (Protime)PT. 25.3 SECONDS (11.7-14.9)
[2022-03-01] MEDS: 0.9% Normal Saline 1,000 ML 75 ML IV (20:38)
[2022-03-01] MEDS: 0.9% Saline Lock 10 ML Syringe IV (20:38)
[2022-03-02] VITALS (15 sets, daily range): BP systolic 147–188; BP diastolic 64–91; PULSE 74–94; RESP 12–18; TEMP 36.6–37; O2SAT 94–100
[2022-03-02 06:37] LABS: Absolute Lymphocyte Count 1.11 X10^3/uL (0.83-4.51); Basophil# 0.04 X10^3/uL; Basophil% 0.8 % (0-1); Eosinophil# 0.14 X10^3/uL; Hematocrit 41.4 % (37-47); Hemoglobin 13.4 g/dL (12.0-15.0); Lymphocyte # 1.11 X10^3/ul (0.83-4.51); Lymphocyte % 23.6 % (19-41); Mean Corp Hgb Conc 32.4 g/dL (32-36); Mean Corpuscular Hgb 29.7 pg (27.0-32.0); Mean Corpuscular Volume 91.8 fL (81-99); Mean Platelet Vol. 10.3 fl (6.2-12.0); Monocyte# 0.42 X10^3/uL; Monocyte% 8.9 % (0-10); NRBC Flagged by Analyzer 0 % (0-5); Neutrophil # 2.97 X10^3/uL (2.7-7.7); Neutrophil % 63.1 % (47-70); Platelet Count 194 K/mm3 (150-450); RBC Distribution Width CV 14.2 % (11.6-14.6); RBC Distribution Width SD 48.1 fl (35.1-43.9); Red Blood Count 4.51 M/mm3 (4.2-5.4); White Blood Count 4.7 K/mm3 (4.4-11.0)
--- NOTE | 2022-03-02 06:39 | PCM.HOSP.N ---
Hospitalist Note Nursing notified physician that patient has nacho hematuria, but no obvious clots. Patient s/p 10 mg coumadin the day prior. Repeat INR pending this AM. Requested continued bladder monitoring, straight catheterization if needed and if any onset clots noted may need to place 3-way catheter.
[2022-03-02 06:53] LABS: International Normalized Ratio 2.2; Prothrombin Time (Protime)PT. 23.9 SECONDS (11.7-14.9)
[2022-03-02 06:58] LABS: Anion Gap 8 (5-15); BUN 24 mg/dL (7-18); BUN/Creat Ratio 34.3 RATIO (10-20); Calcium,Total 8.5 mg/dL (8.5-10.1); Chloride 112 mmol/L (98-107); EST Glomerular Filtration Rate 85 mL/min (>60); Est Glom Filt Rate - Afr Amer 103 mL/min (>60); Estimated Creatinine Clearance 35.88 ml/min; Glucose 114 mg/dL (74-106); Potassium 3.8 mmol/L (3.5-5.1); Sodium Level 142 mmol/L (136-145)
--- NOTE | 2022-03-02 07:31 | NURSING ---
Straight cath x1 resulted in 400ml hematuria, no clots. Prior patient tried voiding x4 and could not but said she felt pressure in her bladder, then she stood up and blood ran out. Bladder scan showed 408ml prior to straight cath.
[2022-03-02] MEDS: amLODIPine 10 MG Tablet PO (10:01)
[2022-03-02] MEDS: Potassium Chloride Oral Tablet 20 MEQ PO (10:01)
[2022-03-02] MEDS: 0.9% Normal Saline 1,000 ML 75 ML IV (10:02)
[2022-03-02] MEDS: hydrALAZINE 20 MG/ML Vial 10 MG IV (12:03)
--- NOTE | 2022-03-02 16:05 | PCM.CONS.GEN ---
Assessment & Plan Assessment/Plan (1) GI bleed: PLAN: The differential diagnosis for lower GI bleed in a patient on anticoagulation would be malignancy, diverticular bleed, AVM, upper GI bleed with rapid transit. I agree that she should undergo an upper and lower endoscopy. she is awaiting transfer. Patient remains in the hospital I will be glad to participate in her care. Thank you very much for allowing me to this patient. HPI Consult Data Date of Consult: 03/02/22 HPI Narrative HPI Narrative: REBECA FINLEY, is a 81-year-old woman who has extensive bilateral pulmonary emboli through the main pulmonary artery right and left pulmonary arteries and more peripheral pulmonary arterial branches currently patient has been on aspirin as well as on IV heparin. The patient has a prior history of DVT, following a history of a knee surgery. History of allergies noted for Xarelto and Eliquis. Gastroenterology consultation requested because of recent lower GI bleed. She has no past medical history of upper or lower endoscopy. Her weight has been stable. There is some question during possible underlying malignancy secondary to recurrent pulmonary embolism without a pre-existing cause. [facility] Medical History (Updated 03/02/22 @ 16:[address] Melchor Friend, DO) Atrial fibrillation with RVR History of DVT (deep vein thrombosis) Nonsustained ventricular tachycardia Pulmonary embolism, bilateral Home Medications hydrocodone-acetaminophen 1 tab PO Q4H PRN 3 Days #14 tab 01/19/22 [Rx Last Taken 01/20/22] aspirin 81 mg PO DAILY@0800 01/20/22 [History Last Taken 01/19/22] potassium chloride 20 meq PO DAILY 01/20/22 [History Last Taken 01/19/22] cephalexin 500 mg PO BID #10 cap 01/21/22 [Rx Last Taken Unknown] oxycodone-acetaminophen 1 tab PO Q6H PRN 7 Days #10 tab 01/21/22 [Rx Last Taken Unknown] Allergy/AdvReac Type Severity Reaction Status Date / Time acetaminophen [From Tylenol] Allergy Intermediate BP Verified 02/26/22 09:00 ELEVATION apixaban [From Eliquis] AdvReac visual Verified 02/26/22 09:00 disturbance rivaroxaban [From Xarelto] AdvReac burning Verified 02/26/22 09:00 sensation, hair loss Family History Mother Hypertension Surgical History History of appendectomy History of bilateral knee replacement History of hysterectomy (~1979) Social History adopted: No household members: spouse housing: house number of children: 0 pets and animals: Yes (1) pets and animals: dog(s) history of recent travel: No Smoking Status: Never smoker alcohol intake: never substance use type: does not use caffeine: Yes Type: coffee Number of servings: 2 what type of physical activity do you participate in: walking and other frequency: daily duration: 15-30 minutes/day seatbelt use: always do you feel safe at home: Yes ROS Gastrointestinal Gastrointestinal: Reports hematemesis Physical Exam Const alert General Appearance: cooperative Orientation / Consciousness: oriented to person HEENT hearing grossly normal bilaterally Head and Scalp: normal to inspection Face and Sinus: face symmetric Nose: external nose normal Mouth: oral and palatal mucosa normal Eyes conjunctivae normal General Eye: normal appearance of both eyes Neck full ROM General: normal visual inspection Lymph Lymphatic: no lymphadenopathy noted Chest inspection of chest normal and palpation of chest normal Chest: symmetrical chest wall rise Resp normal respiratory effort Effort and Inspection: able to speak in complete sentences Cardio regular rate GI non-distended Percussion: normal to percussion Rectal Exam: deferred Neuro Speech: speech normal Gait (Neuro): normal gait Lab / Micro Data Result Diagrams: 03/02/22 05:42 03/02/22 05:42 Labs: Laboratory Results - last 24 hr 03/01/22 19:04: PT 25.3 H, INR 2.3 03/01/22 19:04: WBC 7.0, RBC 4.86, Hgb 14.5, Hct 45.4, MCV 93.4, MCH 29.8, MCHC 31.9 L, RDW Std Deviation 48.7 H, RDW Coeff of Carloz 14.2, Plt Count 186, MPV 10.1, Immature Gran % (Auto) 0.600, Neut % (Auto) 70.6 H, Lymph % (Auto) 18.1 L, [place] % (Auto) 7.9, Eos % (Auto) 1.9, Baso % (Auto) 0.9, Absolute Neuts (auto) 4.9, Absolute Lymphs (auto) 1.26, Nucleated RBC % 0 03/01/22 20:15: Blood Type A POSITIVE, Antibody Screen NEGATIVE 03/02/22 05:42: Sodium 142, Potassium 3.8, Chloride 112 H, Carbon Dioxide 22.0, Anion Gap 8, BUN 24 H, Creatinine 0.70, Estim Creat Clear Calc 35.88, Est GFR (MDRD) Af Amer 103, Est GFR (MDRD) Non-Af 85, BUN/Creatinine Ratio 34.3 H, Glucose 114 H, Calcium 8.5 03/02/22 05:42: WBC 4.7, RBC 4.51, Hgb 13.4, Hct 41.4, MCV 91.8, MCH 29.7, MCHC 32.4, RDW Std Deviation 48.1 H, RDW Coeff of Carloz 14.2, Plt Count 194, MPV 10.3, Immature Gran % (Auto) 0.600, Neut % (Auto) 63.1, Lymph % (Auto) 23.6, [place] % (Auto) 8.9, Eos % (Auto) 3.0, Baso % (Auto) 0.8, Absolute Neuts (auto) 3.0, Absolute Lymphs (auto) 1.11, Nucleated RBC % 0 03/02/22 05:42: PT 23.9 H, INR 2.2 Micro: Microbiology 03/02/22 06:08 Stool Stool Occult Blood (GIL) - Final Occult Blood Positive Charges/Coding Visit Charges Inpatient E&M: 86746 Init Hosp L2
--- NOTE | 2022-03-02 16:57 | PN.HOSP_ITS ---
Subjective Subjective Patient seen and examined. SHe complained of having a bad night. She developed bloody stools yesternight, then overnight she developed hematuria. She denies any lightheadedness or dizziness or palpitations. REview of systems is otherwwise negative. Patient DID'T receive coumadin last night. Aspirin also discontinued. Objective Data Objective Data Vital Signs: Vital Signs Temp Pulse Resp BP Pulse Ox 98.4 F 85 12 158/66 H 100 03/02/22 16:34 03/02/22 16:34 03/02/22 16:34 03/02/22 16:34 03/02/22 16:34 Oxygen Flow Rate (L/min) 2 Oxygen Delivery Method Room Air Weight: 170 lb 13.732 oz Body Mass Index (BMI) 30.4 Intake & Output: Intake and Output for Last 24 Hours 02/28/22 03/01/22 03/02/22 23:59 23:59 23:59 Intake Total 1116.8 / 1116.8 480 / 480 1000 / 1000 Output Total 0 / 0 Balance 1116.8 / 1116.8 480 / 480 1000 / 1000 Lab / Micro Data Result Diagrams: 03/02/22 05:42 03/02/22 05:42 Labs: Laboratory Results - last 24 hr 03/01/22 19:04: PT 25.3 H, INR 2.3 03/01/22 19:04: WBC 7.0, RBC 4.86, Hgb 14.5, Hct 45.4, MCV 93.4, MCH 29.8, MCHC 31.9 L, RDW Std Deviation 48.7 H, RDW Coeff of Carloz 14.2, Plt Count 186, MPV 10.1, Immature Gran % (Auto) 0.600, Neut % (Auto) 70.6 H, Lymph % (Auto) 18.1 L, [place] % (Auto) 7.9, Eos % (Auto) 1.9, Baso % (Auto) 0.9, Absolute Neuts (auto) 4.9, Absolute Lymphs (auto) 1.26, Nucleated RBC % 0 03/01/22 20:15: Blood Type A POSITIVE, Antibody Screen NEGATIVE 03/02/22 05:42: Sodium 142, Potassium 3.8, Chloride 112 H, Carbon Dioxide 22.0, Anion Gap 8, BUN 24 H, Creatinine 0.70, Estim Creat Clear Calc 35.88, Est GFR (MDRD) Af Amer 103, Est GFR (MDRD) Non-Af 85, BUN/Creatinine Ratio 34.3 H, Glucose 114 H, Calcium 8.5 03/02/22 05:42: WBC 4.7, RBC 4.51, Hgb 13.4, Hct 41.4, MCV 91.8, MCH 29.7, MCHC 32.4, RDW Std Deviation 48.1 H, RDW Coeff of Carloz 14.2, Plt Count 194, MPV 10.3, Immature Gran % (Auto) 0.600, Neut % (Auto) 63.1, Lymph % (Auto) 23.6, [place] % (Auto) 8.9, Eos % (Auto) 3.0, Baso % (Auto) 0.8, Absolute Neuts (auto) 3.0, A bsolute Lymphs (auto) 1.11, Nucleated RBC % 0 03/02/22 05:42: PT 23.9 H, INR 2.2 Micro: Microbiology 03/02/22 06:08 Stool Stool Occult Blood (GIL) - Final Occult Blood Positive Physical Exam Const alert, oriented x3 and no apparent distress General Appearance: cooperative Exam Limitations: no limitations HEENT normocephalic, head/scalp atraumatic, hearing grossly normal bilaterally and moist oral mucous membranes Head and Scalp: normocephalic Eyes PERRL, EOMs intact bilaterally and conjunctivae normal Neck no lymphadenopathy, supple and no JVD Resp normal respiratory effort, no retractions, no use of accessory muscles and clear to auscultation bilaterally Resp Narrative: tachypneic, diminished breath sounds bibasally, no wheezes or crackles. Cardio regular rate, regular rhythm, S1 normal heart sound, S2 normal heart sound and no murmurs Cardio Narrative: tachycardic GI normal to inspection, nondistended, normoactive bowel sounds, soft to palpation, non-tender and non-distended Extremity normal to inspection, full ROM and no clubbing, cyanosis or edema Peripheral Pulses: Yes pulses 2+ throughout Skin no rashes or lesions noted Neuro oriented x3, CN's II-XII intact bilaterally and moves all extremities Sensorium / Orientation: awake and alert Psych affect normal Assessment & Plan Assessment/Plan (1) Pulmonary embolism, bilateral: PLAN: #Bilateral submassive PE * INR today is 2.3 * coumadin and lovenox discontinued o/a of patient developing hematuria and hematochezia * GI consulted * her POA, Dr Mares wants her transferred to [facility] to be evaluated by the pulmonary thrombectomy team. * Patient accepted at [facility]; awaiting bed. * she was not able to tolerate eliquis or xarelto during her previous episode of PE, and says she is not willint to try them again due to the intractable itching she experienced whilst on it. Prefers to be on coumadin. * will need anticoagulation for life * * #Hematochezia * developed bloody stools overnight. 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 * patient is aware of the bladder carcinoma and follows up with urology * #Kidney stone s/p recent stent placement * stable * #DVT prophylaxis: * SCDs. anticoagulation discontinued o/a of hematuria and hematochezia * Code status: full code * * Disposition; awaiting dc to [facility] Charges/Coding Visit Charges Inpatient E&M: 29057 [facility] Hosp L3
[2022-03-03 03:00] VITALS: PULSE 74
[2022-03-03 03:32] VITALS: BP 156/73; PULSE 87; RESP 18; TEMP 37; O2SAT 96
[2022-03-03 06:49] VITALS: PULSE 72
[2022-03-03 06:51] VITALS: BP 141/62; PULSE 77; RESP 18; TEMP 37.1; O2SAT 96
[2022-03-03 06:57] LABS: Absolute Lymphocyte Count 1.09 X10^3/uL (0.83-4.51); Absolute Neutrophil Count 3.1 X10^3/uL (2.0-7.7); Basophil# 0.05 X10^3/uL; Eosinophil# 0.15 X10^3/uL; Eosinophils% 3.1 % (0-5); Hematocrit 38.8 % (37-47); Hemoglobin 12.2 g/dL (12.0-15.0); Lymphocyte # 1.09 X10^3/ul (0.83-4.51); Lymphocyte % 22.2 % (19-41); Mean Corp Hgb Conc 31.4 g/dL (32-36); Mean Corpuscular Hgb 29.4 pg (27.0-32.0); Mean Corpuscular Volume 93.5 fL (81-99); Mean Platelet Vol. 10.2 fl (6.2-12.0); Monocyte# 0.49 X10^3/uL; NRBC Flagged by Analyzer 0 % (0-5); Neutrophil % 63.3 % (47-70); Platelet Count 181 K/mm3 (150-450); RBC Distribution Width CV 14.4 % (11.6-14.6); RBC Distribution Width SD 49.4 fl (35.1-43.9); Red Blood Count 4.15 M/mm3 (4.2-5.4); White Blood Count 4.9 K/mm3 (4.4-11.0)
[2022-03-03 07:16] LABS: Anion Gap 8 (5-15); BUN 18 mg/dL (7-18); BUN/Creat Ratio 30.9 RATIO (10-20); Calcium,Total 8.9 mg/dL (8.5-10.1); Chloride 114 mmol/L (98-107); Creatinine, Serum 0.58 mg/dL (0.55-1.02); EST Glomerular Filtration Rate 105 mL/min (>60); Est Glom Filt Rate - Afr Amer 127 mL/min (>60); Estimated Creatinine Clearance 35.88 ml/min; Glucose 103 mg/dL (74-106); Potassium 3.8 mmol/L (3.5-5.1); Sodium Level 142 mmol/L (136-145)
--- NOTE | 2022-03-03 07:45 | NURSING ---
Report called to CELESTINE Porter at [facility].
[2022-03-03 08:09] LABS: International Normalized Ratio 1.8; Prothrombin Time (Protime)PT. 20.8 SECONDS (11.7-14.9)
[2022-03-03 08:35] VITALS: BP 170/96; PULSE 86; RESP 16; TEMP 36.8; O2SAT 99
[2022-03-03] MEDS: Potassium Chloride Oral Tablet 20 MEQ PO (08:39)
[2022-03-03] MEDS: amLODIPine 10 MG Tablet PO (08:39)
--- NOTE | 2022-03-03 14:57 | PCM.DC.SUM ---
Providers Date of Admission: 02/26/22 Primary Care Physician: Dr. Nhi Kirby, Consultations 02/26/22 12:56 Consult: Cardiology Routine Consulting Provider: Jian Louie Reason for Consult: Bilateral PEs EMERGENT Consult: No MD Notified: Yes Date Notified: 02/26/22 Time Notified: 12:56 Method of Notification: Text 02/27/22 05:33 Consult: Energy Conservation Representative / Pulmonary Medicine Routine Consulting Provider: Pulmonary Medicine [facility] Reason for Consult: PE EMERGENT Consult: No MD Notified: Yes Date Notified: 02/27/22 Time Notified: 05:33 Method of Notification: Text Comments:: 03/01/22 19:18 Consult: Gastroenterology Routine Consulting Provider: Elvie [facility] Reason for Consult: Rectal bleeding EMERGENT Consult: No MD Notified: Yes Date Notified: 03/01/22 Time Notified: 19:18 Method of Notification: Cortext Reason For Visit: BILATERAL SUBMASSIVE PE Diagnosis Discharge Diagnosis (1) Pulmonary embolism, bilateral: Status: Acute Code(s): I26.99 - Other pulmonary embolism without acute cor pulmonale Medications at Discharge Home Medications hydrocodone-acetaminophen 1 tab PO Q4H PRN 3 Days #14 tab 01/19/22 aspirin 81 mg PO DAILY@0800 01/20/22 potassium chloride 20 meq PO DAILY 01/20/22 cephalexin 500 mg PO BID #10 cap 01/21/22 oxycodone-acetaminophen 1 tab PO Q6H PRN 7 Days #10 tab 01/21/22 Hospital Course Operations None Procedures None Summary of Care Provided Minutes Spent on Discharge: 45 Hospital Course: REBECA FINLEY, is a 81 F with a PMh as outlined who presents via the ED on 02/26/2022 with a complaint of shortness of breath which worsened with exertion and started on the day of admission. She denied any chest pain, palpitations, dizziness, nausea or vomiting. REview of systems was otherwise negative. She had recently had 2 procedures done- lithotripsy and kidney stent placement for kidney stone. Vitals in the ED were BP of 153/94, WA of 114, RR of 28 and she was saturating at 93% on room air. CBC was unremarkable. BMp showed potassium of 3.3 and initial tropnin was 609 and BNP was 121.8. 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 She was on anticoagulation for a while, but subsequently stopped. CTA of the chest showed bilateral PE. She was admitted to be managed for submassive PE, o/a of bilateral PE with evidence of right heart strain evidenced by elevated troponin and BNP. Of note, patient and her were accompanied by Dr Carvajal, who is a family friend and her medical power of civil litigation attorney. According to him, during patient's previous episode of PE which happened after she had knee surgery, she developed arrythmias, precisely ventricular tachycardia o./a of the PE, as well as afib. She therefore required admission to the ICU. During my evaluation, patient's oxygen saturation dropped to the mid 80s when she got up to use the commode. Patient was therefore admitted to the ICU overnight. Shortness of breath subsequently resolved and she was weaned off of oxygen. She was switched from heparin drip to subcu Lovenox and started on Coumadin for treatment of PE. Hospital course was complicated by hematuria and hematochezia. Lovenox and Coumadin was therefore discontinued. INR was 2.3. Patient kept on having hematuria. 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 She had been following up with urology. In light of hematuria and hematochezia, her healthcare power of civil litigation attorney requested that she be transferred to [facility]. Patient was accepted at [facility] under the care of Dr. Matos hospitalist and plan was for them to consult urology and gastroenterology Dr. Childs of the thrombectomy team to evaluate patient see whether she was a candidate for thrombectomy according to her POA. Patient was transferred to [facility] on 03/03/2022 when she got a bed. Patient was seen and examined prior to transfer. She had no active complaints. was by her bedside. She had not had any more hematuria or hematochezia overnight. Review of systems otherwise negative. Labs and vitals reviewed. Home medication reviewed and reconciled. Physical Exam Const alert, oriented x3 and no apparent distress General Appearance: cooperative, comfortable, well kempt and well developed Exam Limitations: no limitations HEENT normocephalic, head/scalp atraumatic, hearing grossly normal bilaterally and moist oral mucous membranes Eyes PERRL, EOMs intact bilaterally and conjunctivae normal Neck no lymphadenopathy, supple and no JVD Resp normal respiratory effort, no retractions, no use of accessory muscles and clear to auscultation bilaterally Resp Narrative: tachypneic, diminished breath sounds bibasally, no wheezes or crackles. Cardio regular rate, regular rhythm, S1 normal heart sound, S2 normal heart sound and no murmurs Cardio Narrative: tachycardic GI normal to inspection, nondistended, normoactive bowel sounds, soft to palpation, non-tender and non-distended Extremity normal to inspection, full ROM and no clubbing, cyanosis or edema Skin no rashes or lesions noted Neuro oriented x3, CN's II-XII intact bilaterally and moves all extremities Sensorium / Orientation: awake and alert Psych affect normal Weight / BMI Weight Weight: 172 lb 9.951 oz Body Mass Index (BMI) 30.4 ABG / Lab / Microbiology Data Result Diagrams: 03/03/22 05:50 03/03/22 05:50 Laboratory: Laboratory Results - last 24 hr 03/03/22 05:50: Sodium 142, Potassium 3.8, Chloride 114 H, Carbon Dioxide 20.0 L, Anion Gap 8, BUN 18, Creatinine 0.58, Estim Creat Clear Calc 35.88, Est GFR (MDRD) Af Amer 127, Est GFR (MDRD) Non-Af 105, BUN/Creatinine Ratio 30.9 H, Glucose 103, Calcium 8.9 03/03/22 05:50: WBC 4.9, RBC 4.15 L, Hgb 12.2, Hct 38.8, MCV 93.5, MCH 29.4, MCHC 31.4 L, RDW Std Deviation 49.4 H, RDW Coeff of Carloz 14.4, Plt Count 181, MPV 10.2, Immature Gran % (Auto) 0.400, Neut % (Auto) 63.3, Lymph % (Auto) 22.2, [place] % (Auto) 10.0, Eos % (Auto) 3.1, Baso % (Auto) 1.0, Absolute Neuts (auto) 3.1, Absolute Lymphs (auto) 1.09, Nucleated RBC % 0 03/03/22 05:50: PT 20.8 H, INR 1.8 Microbiology: Microbiology 03/02/22 06:08 Stool Stool Occult Blood (GIL) - Final Occult Blood Positive D/C Instructions Discharge Diet: No restrictions Meaningful Use Info Meaningful Use Diagnoses (Choose all that apply): VTE VTE Anticoag overlap given w/in hospital stay or rx'd at dc?: No Pt receive overlap for 5 days?: No Reason overlap not ordered, prescribed, or given for 5 days: Medical Contraindication Discharge Plan Admission Admit Date/Time: 02/26/22 10:49 Primary Reason for Your Visit: bilateral submassive PE Attending Provider: Bailey Baca Primary Care Provider: Nhi Kirby Consulting Providers: Jian Louie ; Walt Muñoz ; Reynaldo Barros ; Tracy Garces YOUTH COORDINATOR Discharge Orders/Prescriptions Prescriptions: No Action hydrocodone-acetaminophen 5-325 mg tablet 1 tab PO Q4H PRN (Reason: pain) 3 Days Qty: 14 RF: 0 aspirin 81 mg tablet,chewable 81 mg PO DAILY@0800 RF: 0 potassium chloride 20 mEq tablet,ER particles/crystals 20 meq PO DAILY RF: 0 cephalexin 500 mg capsule 500 mg PO BID Qty: 10 RF: 0 oxycodone-acetaminophen 5-325 mg tablet 1 tab PO Q6H PRN (Reason: pain) 7 Days Qty: 10 RF: 0 Referrals / Follow Up: Nhi Kirby DO [Primary Care Provider] - Disposition Disposition (needs filled in before D/C Order can be placed): Acute Care Hospital Charges/Coding Visit Charges Inpatient E&M: 94450 Disch Hosp
== END 2022-03-03 09:00 | disposition short-term general hospital (02) | DRG 175 ==
LOC: ED 10:58 → PCU 11:18 → ICU 11:43 → PCU 02-27 12:48
PROVIDERS: Hospitalist; Nurse Practitioner; Admitting Provider Student in an Organized Health Care Education/Training Program; Emergency Provider Emergency Medicine; PCP Internal Medicine; Visit Provider Student in an Organized Health Care Education/Training Program
DX: I26.09 Other pulmonary embolism with acute cor pulmonale (principal); K92.1 Melena; C67.9 Malignant neoplasm of bladder, unspecified; J84.10 Pulmonary fibrosis, unspecified; I48.0 Paroxysmal atrial fibrillation; I45.10 Unspecified right bundle-branch block; M19.90 Unspecified osteoarthritis, unspecified site; Z86.711 Personal history of pulmonary embolism; Z86.718 Personal history of other venous thrombosis and embolism; Z79.82 Long term (current) use of aspirin; Z79.899 Other long term (current) drug therapy; Z87.442 Personal history of urinary calculi; R31.9 Hematuria, unspecified
CPT/HCPCS: 36415; 71275; 80048; 82274; 83880; 84484; 85025; 85610; 85730; 86850; 86900; 86901; 93005; 93306; 97161; 97165; 97802; 99283; J7030; Q9967; A4216

== ENCOUNTER → 2022-03-10 | Outpatient (CLI) | payer MEDICARE, OTHER, SELFPAY ==
[2022-03-10 10:33] LABS: International Normalized Ratio 1.6; Prothrombin Time (Protime)PT. 18.6 SECONDS (11.7-14.9)
[2022-03-10 10:47] LABS: Potassium 3.9 mmol/L (3.5-5.1); Troponin-I HS 16 pg/mL (3.0-54.0)
== END | disposition home or self-care (01) ==
LOC: LABSPEC 10:10
PROVIDERS: PCP Internal Medicine; Visit Provider Internal Medicine
DX: E87.6 Hypokalemia (principal); R77.8 Other specified abnormalities of plasma proteins; Z79.01 Long term (current) use of anticoagulants
CPT/HCPCS: 84132; 84484; 85610

== ENCOUNTER → 2022-03-17 | Outpatient (CLI) | payer MEDICARE, OTHER, SELFPAY ==
[2022-03-17 10:26] LABS: International Normalized Ratio 2.6; Prothrombin Time (Protime)PT. 27.3 SECONDS (11.7-14.9)
== END | disposition home or self-care (01) ==
LOC: LAB 09:03
PROVIDERS: PCP Internal Medicine; Visit Provider Internal Medicine
DX: Z79.01 Long term (current) use of anticoagulants (principal)
CPT/HCPCS: 36415; 85610

== ENCOUNTER 2022-03-25 07:01 | Outpatient (RCR) | payer MEDICARE, OTHER, SELFPAY ==
[2022-03-22 08:59] LABS: International Normalized Ratio 2.5; Prothrombin Time (Protime)PT. 26.4 SECONDS (11.7-14.9)
[2022-03-25 08:50] LABS: International Normalized Ratio 2.1; Prothrombin Time (Protime)PT. 22.8 SECONDS (11.7-14.9)
== END 2022-03-25 23:59 | disposition home or self-care (01) ==
LOC: LAB 07:01
PROVIDERS: PCP Internal Medicine; Referring Provider Internal Medicine; Visit Provider Internal Medicine
DX: Z79.01 Long term (current) use of anticoagulants (principal)
CPT/HCPCS: 36415; 85610

== ENCOUNTER 2022-04-15 07:37 | Outpatient (RCR) | payer MEDICARE, OTHER, SELFPAY ==
[2022-04-01 08:42] LABS: International Normalized Ratio 2.4; Prothrombin Time (Protime)PT. 25.5 SECONDS (11.7-14.9)
[2022-04-08 08:55] LABS: International Normalized Ratio 2.3; Prothrombin Time (Protime)PT. 25.2 SECONDS (11.7-14.9)
[2022-04-15 08:55] LABS: International Normalized Ratio 2.6; Prothrombin Time (Protime)PT. 27.8 SECONDS (11.7-14.9)
== END 2022-05-01 02:23 | disposition home or self-care (01) ==
LOC: LAB 07:37
PROVIDERS: PCP Internal Medicine; Referring Provider Internal Medicine; Visit Provider Internal Medicine
DX: Z79.01 Long term (current) use of anticoagulants (principal)
CPT/HCPCS: 36415; 85610

== ENCOUNTER → 2022-09-12 | Outpatient (CLI) | payer MEDICARE, OTHER, SELFPAY ==
[2022-09-12 13:09] LABS: ALB/GLOB Ratio 1.1 RATIO (0.9-2.4); AST(SGOT) 61 U/L (15-37); Alanine Aminotransfer ALT/SGPT 62 U/L (13-56); Albumin, Serum 3.4 g/dL (3.2-5.0); Alkaline Phosphatase 106 U/L (45-117); Anion Gap 8 (5-15); BUN 20 mg/dL (7-18); BUN/Creat Ratio 26.5 RATIO (10-20); Calcium,Total 8.8 mg/dL (8.5-10.1); Chloride 110 mmol/L (98-107); Creatinine, Serum 0.76 mg/dL (0.55-1.02); EST Glomerular Filtration Rate 78 mL/min (>60); Est Glom Filt Rate - Afr Amer 94 mL/min (>60); Globulin 3.2 g/dL (2.2-4.2); Glucose 119 mg/dL (74-106); Protein, Total 6.6 g/dL (6.4-8.2); Sodium Level 142 mmol/L (136-145)
[2022-09-14 13:08] LABS: Protein S, Free 93 % (61-136)
[2022-09-15 10:33] LABS: Activated Protein C Resistance 2.8 ratio (2.2-3.5); Anti-Cardiolipin Ab, IgG, Qn 21 GPL U/mL (0-14); Anti-Cardiolipin Ab, IgM, Qn 32 MPL U/mL (0-12); Protein C, Functional 108 % (73-180); Protein S, Total 104 % (60-150)
== END | disposition home or self-care (01) ==
PROVIDERS: PCP Internal Medicine; Referring Provider Internal Medicine; Visit Provider Internal Medicine
DX: I26.99 Other pulmonary embolism without acute cor pulmonale (principal)
CPT/HCPCS: 36415; 80053; 85303; 85305; 85306; 85307; 86147

== ENCOUNTER → 2022-10-04 | Outpatient (CLI) | payer MEDICARE, OTHER, SELFPAY ==
--- NOTE | 2022-10-04 08:54 | US_ITS ---
STUDY: ABDOMINAL ULTRASOUND - RIGHT UPPER QUADRANT REASON FOR VISIT: Female, 82 years old. ABDOMEN PAIN elevated LFTS -- elevated LFTS TECHNIQUE: Ultrasound evaluation of the right upper quadrant was performed with real-time and static daniels-scale imaging. TECHNICAL QUALITY: Adequate. COMPARISON: 01.21.22 ct FINDINGS: Liver: There is normal echogenicity of the liver. The bile ducts are within normal limits. There is hepatic color flow. The direction of portal flow is hepatopetal. There is no demonstrated mass lesion. Gallbladder: Normal distended gallbladder. The gallbladder wall measures 1 mm. There is a negative sonographic Cain''s sign. There is no pericholecystic fluid. There are no gallstones. Common Bile Duct (C.B.D.): The common bile duct measures ( in mm): 5 Pancreas: Normal size of the head, body of the pancreas. There is normal echogenicity of the pancreas. There is no demonstrated pancreatic mass or cyst. Right Kidney: Normal size of the right kidney. The right kidney measures 10.1 cm. . Normal renal cortex. There is a cyst. This measures 28mm. No follow-up required. There is no right hydronephrosis. Aorta: It is not visualized. There is too much overlying bowel gas. . US/Abdomen Limited IMPRESSION: Right Kidney: There is a cyst. This measures 28mm. No follow-up required. Electronically Signed: Kile Jackson MD at 16:10 EST ,
== END | disposition home or self-care (01) ==
LOC: US 08:53
PROVIDERS: PCP Internal Medicine; Referring Provider Internal Medicine; Visit Provider Internal Medicine
DX: R79.89 Other specified abnormal findings of blood chemistry (principal)
CPT/HCPCS: 76705

== ENCOUNTER 2022-11-07 13:21 | Outpatient (CLI) | payer MEDICARE, OTHER, SELFPAY ==
[2022-11-07 14:11] LABS: Erythrocyte Sedimentation Rate 17 mm/hr (0-30)
[2022-11-07 14:13] LABS: Absolute Neutrophil Count 2.7 X10^3/uL (2.0-7.7); Basophil# 0.05 X10^3/uL; Basophil% 1.1 % (0-1); Eosinophil# 0.13 X10^3/uL; Hematocrit 42.3 % (37-47); Hemoglobin 13.1 g/dL (12.0-15.0); Lymphocyte % 27.4 % (19-41); Mean Corpuscular Hgb 28.2 pg (27.0-32.0); Mean Corpuscular Volume 91.2 fL (81-99); Mean Platelet Vol. 10.9 fl (6.2-12.0); Monocyte# 0.26 X10^3/uL; Monocyte% 5.9 % (0-10); NRBC Flagged by Analyzer 0 % (0-5); Neutrophil # 2.73 X10^3/uL (2.7-7.7); Neutrophil % 62.4 % (47-70); Platelet Count 220 K/mm3 (150-450); RBC Distribution Width CV 14.8 % (11.6-14.6); RBC Distribution Width SD 49.5 fl (35.1-43.9); Red Blood Count 4.64 M/mm3 (4.2-5.4); White Blood Count 4.4 K/mm3 (4.4-11.0)
[2022-11-07 14:42] LABS: ALB/GLOB Ratio 0.8 RATIO (0.9-2.4); AST(SGOT) 66 U/L (15-37); Alanine Aminotransfer ALT/SGPT 75 U/L (13-56); Alkaline Phosphatase 86 U/L (45-117); Anion Gap 7 (5-15); BUN 19 mg/dL (7-18); BUN/Creat Ratio 19.8 RATIO (10-20); CRP < 2.90 mg/L (0.0-3.0); CRP, High Sensitivity Cardiac 2.94 mg/L; Calcium,Total 8.7 mg/dL (8.5-10.1); Chloride 108 mmol/L (98-107); Creatinine, Serum 0.96 mg/dL (0.55-1.02); EST Glomerular Filtration Rate 59 mL/min (>60); Est Glom Filt Rate - Afr Amer 71 mL/min (>60); Ferritin 13 ng/mL (8-252); Globulin 3.8 g/dL (2.2-4.2); Glucose 218 mg/dL (74-106); Potassium 3.6 mmol/L (3.5-5.1); Protein, Total 6.8 g/dL (6.4-8.2); Rheumatoid Factor < 10.0 IU/mL (<15); Sodium Level 141 mmol/L (136-145)
[2022-11-09 14:09] LABS: Ceruloplasmin 30.8 mg/dL (19.0-39.0); HEPATITIS B SURFACE AG Negative (Negative); Hep C Antibodies <0.1 s/co ratio (0.0-0.9); Hepatitis A IgM Antibody Negative (Negative); Hepatitis B Core AB IgM Negative (Negative); Transferrin 343 mg/dL (149-313)
[2022-11-09 18:44] LABS: Anti-Smooth Muscle ABS 12 Units (0-19); Hepatitis A AB, Total Negative (Negative)
[2022-11-09 18:45] LABS: ANTINUCLEAR ANTIBODIES DIRECT Negative (Negative); Anti-Mitochondrial AB <20.0 Units (0.0-20.0)
== END 2022-11-07 23:59 | disposition home or self-care (01) ==
LOC: LAB.FUTURE 13:22 → LAB 13:23
PROVIDERS: PCP Internal Medicine; Visit Provider Internal Medicine
DX: R79.89 Other specified abnormal findings of blood chemistry (principal); R79.82 Elevated C-reactive protein (CRP); R73.02 Impaired glucose tolerance (oral)
CPT/HCPCS: 36415; 80053; 80074; 82390; 82728; 83516; 84466; 85025; 85652; 86038; 86140; 86141; 86431; 86708

== ENCOUNTER → 2022-11-17 | Outpatient (CLI) | payer MEDICARE, OTHER, SELFPAY ==
--- NOTE | 2022-11-17 12:58 | US_ITS ---
STUDY: ULTRASOUND OF THE FEMALE PELVIS - COMPLETE REASON FOR EXAM: Female, 82 years old. follow up on ovarian cyst -- follow up on ovarian cyst LMP: TECHNIQUE: Transabdominal TECHNICAL QUALITY: Adequate. COMPARISON: No recent ultrasound available for comparison. FINDINGS: Uterus is not visualized status post hysterectomy The right ovary is visualized. The right ovary measures 2.7 x 2 x 1.6 cm. There is a cyst measuring 2.2 x 1.6 x 1.2 cm. There is no visualized right adnexal mass or complex lesion. There is normal arterial and normal venous vascularity. The left ovary is visualized. The left ovary measures 3 x 2.4 x 1.3 cm. There is a cyst measuring 1.9 1.8 x 1.1 cm. There is no visualized left adnexal mass or complex lesion. There is normal arterial and normal venous vascularity. There is no fluid in the cul-de-sac. The pre void volume of the bladder was 426 ml. US/Pelvic (Non ) IMPRESSION: Small bilateral ovarian cysts status post hysterectomy.. Electronically Signed: Jayjay Kulkarni MD at 17:23 EST Reading Location ID and State: [address] [place] [address] , Service support ,
== END | disposition home or self-care (01) ==
LOC: US 12:57
PROVIDERS: PCP Internal Medicine; Referring Provider Internal Medicine; Visit Provider Internal Medicine
DX: N83.209 Unspecified ovarian cyst, unspecified side (principal)
CPT/HCPCS: 76856

== ENCOUNTER → 2023-05-29 | Outpatient (CLI) | payer MEDICARE, OTHER, SELFPAY ==
--- NOTE | 2023-05-29 | CYSPIN_PTH ---
PATIENT: REBECA FINLEY LOC: [facility] U#:[id number] AGE/SX: 82/F ROOM: RE05/29/[address]: Dr. Choco Adrian MD : 1940 BED: DIS: 05/29/2023 SPEC #: [id number] RECD: 05/29/23 16:00 STATUS: SHANNAN WELLS #: [id number] GOKUL: 05/29/23 00:[address]: Choco Adrian DEPT: CYTOLOGY RECD BY: Abiel Arzola ENTERED: 05/30/23 07:35 SP TYPE: CYSPIN FL OTHR DR: Dr. 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 See comment. SJ:macie 05/30/2023 COMMENT The specimen predominantly consists of squamous cells. Numerous organisms consistent with bacteria are also noted. Clinical correlation and appropriate follow up are necessary. The Suzie System for urine cytology diagnostic categorization was used in the evaluation of this case. Please make reference to previous specimen ([id number]) bladder tumor, TUR with diagnosis of papillary urothelial carcinoma. CYTOLOGY STUDY Slides are reviewed. CYTOLOGY GROSS Received is 45 ml of yellow hazy fluid labeled with the patient's name and and designated per the requisition as urine. Submitted for cytology preparation. / macie 05/29/2023 TC:5 CPT: 48088
[2023-05-29 16:23] LABS: Cytology, Body Fluid / CSF SEE PATHOLOGY REPORT
== END | disposition home or self-care (01) ==
LOC: LABSPEC 15:57
PROVIDERS: PCP Internal Medicine; Referring Provider Urology; Visit Provider Urology
DX: C67.6 Malignant neoplasm of ureteric orifice (principal)
CPT/HCPCS: 88108; 88313

== ENCOUNTER → 2024-05-23 | Outpatient (CLI) | payer MEDICARE, OTHER, SELFPAY ==
--- NOTE | 2024-05-23 14:08 | US_ITS ---
STUDY: ULTRASOUND OF THE FEMALE PELVIS - COMPLETE REASON FOR EXAM: Female, 83 years old. ovarian cyst LMP: TECHNIQUE: Transabdominal TECHNICAL QUALITY: Adequate. COMPARISON: 11/17/2022. FINDINGS: The uterus is surgically absent The right ovary is visualized. The right ovary measures 2.4 x 2.1 x 1.9 cm. There is a 2.2 cm cyst. There is no visualized right adnexal mass or complex lesion. There is normal arterial and normal venous vascularity. The left ovary is visualized. The left ovary measures 3.1 x 2.9 x 2.0 cm. There is a 1.9 cm cyst. There is no visualized left adnexal mass or complex lesion. There is normal arterial and normal venous vascularity. There is no fluid in the cul-de-sac. Grossly normal bladder. US/Pelvic (Non ) IMPRESSION: No significant change. Stable bilateral simple cysts approximately 2 cm size. Electronically Signed: Josh Ashford MD at 21:01 EDT ,
== END | disposition home or self-care (01) ==
LOC: US 14:07
PROVIDERS: PCP Internal Medicine; Referring Provider Internal Medicine; Visit Provider Internal Medicine
DX: N83.209 Unspecified ovarian cyst, unspecified side (principal)
CPT/HCPCS: 76856

== ENCOUNTER → 2024-06-05 | Outpatient (CLI) | payer MEDICARE, OTHER, SELFPAY ==
--- NOTE | 2024-06-05 14:27 | CT_ITS ---
INDICATION: multiple lung nodules on CT EXAMINATION: CT Chest W/O Contrast Injection TECHNIQUE: Helically acquired images were obtained of the chest without IV contrast. A radiation dose optimization technique was used for this scan. COMPARISON: 02/26/2022. FINDINGS: Stable 1.1 cm granuloma in the left lung base. Scattered areas of reticular and groundglass opacities likely representing fibrosis, unchanged since prior. There is no demonstrated pleural abnormality. Normal heart and pericardium. There are calcifications of the coronary arteries. Normal mediastinum. Normal hilar regions. Normal unenhanced pulmonary arteries. Normal aorta arch and descending thoracic aorta. There are multi-level degenerative changes of the thoracic spine. New age indeterminate severe compression deformity of T7. No retropulsion of fragments. There is no demonstrated abnormality of the visualized upper abdomen. CT/Chest without Contrast IMPRESSION: Stable 1.1 cm calcified granuloma in the left lung base. No suspicious pulmonary nodules. No significant indeterminate incidental findings requiring additional imaging. New age indeterminate severe compression deformity of T7. ASSESSMENT CATEGORY: LUNG-RADS 2: Benign Appearance or Behavior. Continue annual screening with LDCT in 12 months. Electronically Signed: Luis Joel MD at 2:28 EDT ,
== END | disposition home or self-care (01) ==
LOC: CT 14:26
PROVIDERS: PCP Internal Medicine; Referring Provider Internal Medicine; Visit Provider Internal Medicine
DX: R91.8 Other nonspecific abnormal finding of lung field (principal)
CPT/HCPCS: 71250

== ENCOUNTER → 2025-07-07 | Outpatient (CLI) | payer MEDICARE, OTHER, SELFPAY ==
[2025-07-07 09:28] LABS: Mucous, Urine 0 SEEN /hpf (<or=2+); Red Blood Cells-Urine 0 SEEN /hpf (0-5)
[2025-07-07 10:37] LABS: Hematocrit 45.3 % (37-47); Hemoglobin 14.5 g/dL (12.0-15.0); Immature Granulocytes Count 0.010 X10^3/uL (0.0-0.0); Mean Corp Hgb Conc 32.0 g/dL (32-36); Mean Corpuscular Volume 92.3 fL (81-99); Mean Platelet Vol. 11.0 fl (6.2-12.0); NRBC Flagged by Analyzer 0 % (0-5); Platelet Count 181 K/mm3 (150-450); RBC Distribution Width CV 14.2 % (11.6-14.6); RBC Distribution Width SD 48.7 fl (35.1-43.9); Red Blood Count 4.91 M/mm3 (4.2-5.4); White Blood Count 4.6 K/mm3 (4.4-11.0)
[2025-07-07 10:40] LABS: Creatinine, Urine (random) 110.00 mg/dL (28.00-217.00); Microalbumin,Random Urine 29.4 mg/L (<20 mg/L)
[2025-07-07 10:45] LABS: Glucose, Dipstick Normal (Normal); Ketone-Dipstick Negative (Negative); Leukocyte Esterase-Dipstick 500 /ul (Negative); Nitrite-Dipstick Negative (Negative); Occult Blood-Urine 10 /ul (Negative); Protein-Dipstick 30 mg/dl (Negative); Specific Gravity, Urine 1.010 (1.002-1.030); Urine Bilirubin Dipstick Negative (Negative)
[2025-07-07 10:50] LABS: Color, Urine YELLOW (Yellow)
[2025-07-07 11:00] LABS: AST(SGOT) 53 U/L (<=31); Alanine Aminotransfer ALT/SGPT 46 U/L (<=34); Albumin, Serum 3.9 g/dL (3.4-4.8); Alkaline Phosphatase 84 U/L (35-104); Anion Gap 13 (5-15); BUN 14 mg/dL (4-19); BUN/Creat Ratio 17.5 RATIO (10-20); Calcium,Total 9.2 mg/dL (7.6-11.0); Carbon Dioxide 22.7 mmol/L (21.0-32.0); Chloride 107 mmol/L (98-108); Cholesterol 182 mg/dL (<=200); Globulin 2.8 g/dL (2.2-4.2); Glucose 121 mg/dL (70-99); Low Density Lipoprotein Calc. 81 mg/dL; Potassium 4.0 mmol/L (3.3-5.1); Triglycerides 99 mg/dL; Very Low Density Lipoprotein 20 mg/dL (5-40); Vitamin D,25 Hydroxy 37.7 ng/mL (30-100); cholesterol:hdl ratio screen 2.24
[2025-07-07 11:09] LABS: Squamous Epithelial Cells - UA 0-5 SEEN /hpf (5-10); Transitional Epithelial - Ur 0-5 SEEN /hpf (0-5)
== END | disposition home or self-care (01) ==
LOC: MTLAB 09:23
PROVIDERS: PCP Internal Medicine; Referring Provider Internal Medicine; Visit Provider Internal Medicine
DX: E78.00 Pure hypercholesterolemia, unspecified (principal); E55.9 Vitamin D deficiency, unspecified; I10 Essential (primary) hypertension; R73.09 Other abnormal glucose
CPT/HCPCS: 36415; 80053; 80061; 81001; 82043; 82306; 82570; 83036; 85025